=== PATIENT | male | born 1955 | race Caucasian/White ===

== ENCOUNTER 2017-06-11 12:32 | Inpatient (IN) ==
--- NOTE | 2017-06-11 12:48 | Emergency Department Note ---
Extremity Problem HPI - General Chief complaint: Extremity Problem,Nontraumatic Stated complaint: Left hip pain Time Seen by Provider: 06/11/17 12:44 Source: EMS Mode of arrival: EMS Limitations: no limitations - History of Present Illness HPI Narrative: Patient is a 62-year-old male that is brought to the emergency Department today by EMS after he fell at the [employer] while he was doing laundry. He reports that he was trying to put on his sock and fell backwards landing on his buttocks. He has past medical history of a brain tumor and since that time has been unsteady and walks with cane. He reports that when he fell he had left hip pain. He rates the pain 6 out of 10 on a 0-10 numerical pain score. He describes the pain as sharp. Denies any numbness or tingling. He denies hitting his head or any loss of consciousness. His mother is with him today and reports that since his brain tumor and surgery he had short-term memory loss and slight developmental delay. - Related Data Previous Rx's Medication Instructions Recorded levothyroxine 175 mcg tablet 175 mcg PO QDAY #90 tab 06/24/16 phenobarbital 64.8 mg tablet 194.4 mg PO QDAY #90 tab 02/11/17 bromocriptine 2.5 mg tablet See Dose Instructions PO .COMPLEX 04/13/17 #150 tab hydrocortisone 20 mg tablet 20 mg PO BID #60 tab 04/13/17 lamotrigine 200 mg tablet 600 mg PO BID #180 tab 04/13/17 ranitidine 150 mg capsule 150 mg PO QHS #90 cap 05/14/17 carbamazepine ER 200 mg 600 mg PO Q12H #180 tab 05/22/17 tablet,extended release,12 hr Allergies Allergy/AdvReac Type Severity Reaction Status Date / Time No Known Drug Allergies Allergy Verified 06/11/17 12:33 Review of Systems Review of Systems: Except as noted in the HPI, a 12 - system Review of Systems was found to be negative. Specifically: Constitutional: No chronic fatigue, unexplained weight gain, or weight loss. Eyes: No visual impairment, no pain, watering, discharge, or itching. Respiratory: No wheezing, dyspnea on exertion, or chronic cough. CV: No chest pain, cyanosis, palpitations, dizziness, or fainting. Musculoskeletal: positive left hip pain. See HPI. Neurologic: No headache, weakness, numbness, dizziness, or seizures. Hematologic/lymphatic: No blood disorder. No swollen lymph nodes. Integumentary: No problem with rashes, eczema, changing of skin lesions. No nail abnormalities. Past Medical History - Past Medical History Medical history: Reports: other (brain tumor with surgical removal.) Psychiatric history: Reports: no psych history - Social History smoking status: Never smoker Alcohol use: Reports: None Physical Exam Limitations: no limitations General appearance: alert, in no apparent distress Head: atraumatic, normocephalic, normal inspection Eye: Present: normal appearance, PERRL, EOMI. Absent: nystagmus Neck: Present: normal inspection. Absent: tenderness Chest: Present: normal inspection, symmetric chest wall rise. Absent: tenderness Respiratory: Present: normal lung sounds bilaterally Cardiovascular: Present: regular rate, normal rhythm, +S1, +S2 Extremities: Present: normal inspection, normal capillary refill. Absent: pedal edema, pretibial edema Hip/Pelvis: Present: normal inspection, other (Tenderness with palpation over the lateral side of left hip. No swelling. No ecchymosis, abrasions, or lacerations. No deformities. No crepitus. No internal or external rotation or shortening of the left leg. Pedal pulse 2+. Sensation within normal limits. Patient has normal motion of the left lower leg at the knee and below.) Back: Present: normal inspection, full ROM. Absent: tenderness Neurological: Present: alert, oriented X3, CN II-XII intact Psychiatric: Present: normal affect, normal mood Skin: Present: warm, dry, intact, normal color Course Course Narrative: Ortho here to see patient at 1445, Allyn Lorenzo. Patient will be admitted to [facility] floor and then to surgery with Dr. Gary. - Consultations Consultation #1: consulted with Dr. Gary a [phone] to report the femoral fracture. Dr. Gary will see the patient in the emergency department. Time: 14:20 Vital Signs Temperature 98.5 F 06/11/17 12:33 Pulse Rate 58 L 06/11/17 12:33 Respiratory Rate 16 06/11/17 12:33 Blood Pressure 118/64 06/11/17 12:33 Pulse Oximetry (%) 97 06/11/17 12:33 Temperature 98.5 F 06/11/17 12:33 Pulse Rate 61 06/11/17 14:20 Respiratory Rate 16 06/11/17 12:33 Blood Pressure 113/65 06/11/17 14:20 Pulse Oximetry (%) 94 06/11/17 14:20 Extremity Problem, Nontraumati - MDM Narrative Medical decision making narrative: IV established upon arrival by EMS. Patient was given 2 mg of morphine IV and then later repeated with 4 mg morphine IV to help control his pain with 4 mg ondansetron for nausea related to nausea after morphine given. x-ray of the left hip shows a fracture in the femoral neck. Dr. Gary was consulted and patient will be admitted to [facility] for surgery. - Lab Data Lab results reviewed: Yes I reviewed the patient's lab results. Result diagrams: 06/11/17 13:20 06/11/17 13:20 Lab Results 06/11/17 06/11/17 Range/Units 13:20 13:20 WBC 11.2 H (4.5-11.0) K/mcL RBC 4.75 (4.50-5.90) M/mcL Hgb 15.4 (13.5-16.5) g/dL Hct 46.2 (41.0-55.0) % MCV 97.3 (80.0-100.0) fL MCH 32.4 (26.0-34.0) pg MCHC 33.3 (31.0-36.0) g/dL RDW 13.3 (11.5-14.5) % Plt Count 239 (140-440) K/mcL MPV 7.4 (7.4-10.4) fL Gran % 61.4 (38.0-78.0) % Lymph % (Auto) 29.5 (15.5-49.0) % [place] % (Auto) 6.6 (1.0-12.0) % Eos % (Auto) 2.0 (0.0-7.0) % Baso % (Auto) 0.5 (0.0-2.0) % Gran # 6.9 (1.8-8.0) K/mcL Lymph # (Auto) 3.3 (1.5-4.8) K/mcL [place] # (Auto) 0.7 (0.1-0.9) K/mcL Eos # (Auto) 0.2 (0.0-0.7) K/mcL Baso # (Auto) 0.1 (0.0-0.3) K/mcL Sodium 135 (133-145) mmol/L Potassium 4.0 (3.3-5.1) mmol/L Chloride 97 (96-108) mmol/L Carbon Dioxide 27 (22-30) mmol/L Anion Gap 11.0 (8-16) BUN 12 (8-23) mg/dl Creatinine 0.9 (0.7-1.2) mg/dl GFR Calculation 92 Glucose 102 (70-105) mg/dL Calcium 8.4 L (8.6-10.4) mg/dl Total Bilirubin 0.2 (0.0-1.0) mg/dL AST 15 (0-37) U/l ALT 16 (0-40) U/l Alkaline Phosphatase 75 (39-117) U/L Total Protein 6.9 (5.9-8.4) gm/dL Albumin 4.2 (3.2-5.2) gm/dL Globulin 2.7 (2.2-3.7) gm/dL Albumin/Globulin Ratio 1.6 (1.0-2.3) - Radiology Data Radiology results reviewed: Yes I reviewed the patient's radiology results. 1. Left hip x-ray final impression shows fractured left femoral neck. 2. One view chest x-ray is a normal chest x-ray. - EKG Data EKG attestation: Yes I reviewed and interpreted this EKG. EKG results narrative: EKG read by Dr. Russell and myself. EKG shows normal: sinus rhythm Rate: normal Interpretation: no acute changes Disposition Pt seen by PIPE LINE GAUGER/PA only: Yes Clinical Impression: Fracture of femoral neck, left Disposition: Xfer As Inpt ([facility]) Condition: Fair Referrals: Duong Hercules MD [Primary Care Provider] -
[2017-06-11] MEDS ORDERED: ONDANSETRON 4 MG/2 ML VIAL IV ONE ×2 (13:21→17:55)
[2017-06-11 13:47] LABS: Basophils # (Auto) 0.1 K/mcL (0.0-0.3); Basophils % (Auto) 0.5 % (0.0-2.0); Eosinophils # (Auto) 0.2 K/mcL (0.0-0.7); Granulocytes % (Auto) 61.4 % (38.0-78.0); Lymphocytes # (Auto) 3.3 K/mcL (1.5-4.8); Lymphocytes % (Auto) 29.5 % (15.5-49.0); Mean Cell Volume 97.3 fL (80.0-100.0); Mean Corpuscular HGB Conc 33.3 g/dL (31.0-36.0); Mean Corpuscular Hemoglobin 32.4 pg (26.0-34.0); Monocytes # (Auto) 0.7 K/mcL (0.1-0.9); Monocytes % (Auto) 6.6 % (1.0-12.0); Platelet Count 239 K/mcL (140-440); RBC 4.75 M/mcL (4.50-5.90); Red Cell Distribution Width 13.3 % (11.5-14.5)
--- NOTE | 2017-06-11 13:48 | XRay Report ---
HISTORY: Reason for Exam:Fall/ hip pain FINDINGS: There is an acute transverse fracture through the femoral neck. The shaft is retracted superiorly and the head is rotated. The joint space is mildly narrowed but there is no spur formation. No other fracture is present. IMPRESSION: Fractured left femoral neck Interpreted and Authenticated by: Edis Romero 06/11/17
--- NOTE | 2017-06-11 13:49 | XRay Report ---
HISTORY: Reason for Exam:pre op for hip fracture FINDINGS: The lungs are clear. The heart, mediastinum, sukhdev and pleura are normal. The bilateral bands of discoid atelectasis seen on 12/05/13 have resolved. IMPRESSION: Normal chest. Interpreted and Authenticated by: Edis Romero 06/11/17
[2017-06-11 14:08] LABS: ALT/SGPT 16 U/l (0-40); Albumin 4.2 gm/dL (3.2-5.2); Albumin/Globulin Ratio 1.6 (1.0-2.3); Alkaline Phosphatase 75 U/L (39-117); Blood Urea Nitrogen 12 mg/dl (8-23)
--- NOTE | 2017-06-11 14:23 | Emergency Department Note ---
ED Note Addendum Note Addendum: agree with pa on dx of hip fracture and Dr Estrada to be consulted. Patienbt lab are pending and pt examined by me
[2017-06-11 15:22] LABS: Appearance,Urine HAZY; Bacteria,Urine 0 /hpf (0); Bilirubin,Urine NEG (NEG); Color,Urine YELLOW; Glucose,Urine (UA) NEGATIVE (NEG); Leukocyte Esterase,Urine NEG /uL (NEG); Mucus,Urine FEW /hpf (0); Protein,Urine 30 mg/dL (NEG); Specific Gravity,Urine 1.021 (1.000-1.035); Urine Blood NEG mg/dL (<0.03); Urine Hyaline Cast 4 /lpf (0-2); Urine RBC 1 /hpf (0-1); Urine Squamous Epithelial Cell 0 /hpf (0-4); Urine WBC 2 /hpf (0-4); Urobilinogen,Urine NEG (NEG)
--- NOTE | 2017-06-11 15:34 | History and Physical Report ---
DATE OF ADMISSION: 06/11/2017 CHIEF COMPLAINT: Left hip pain. HISTORY OF PRESENT ILLNESS: This is a 62-year-old male who presented to the emergency department after sustaining a fall at the [employer]. He immediately experienced fairly significant left hip pain and was unable to bear weight on the left lower extremity. I was consulted by the emergency physician regarding his hip pain which is explained by a femoral neck fracture of the left proximal femur. REVIEW OF SYSTEMS: A 12-point review of systems was found to be negative except as noted above. PAST MEDICAL HISTORY: Includes a pituitary tumor, epilepsy, GERD, hyperlipidemia, hypothyroidism, hypopituitarism, hypercholesterolemia, seizures, and testicular hypofunction. PAST SURGICAL HISTORY: History of pituitary tumor removal. He does have a history of an open reduction and internal fixation of the right ankle. FAMILY HISTORY: Noncontributory. ALLERGIES: No known drug allergies. MEDICATIONS: 1. Bromocriptine 2.5 mg tablets. 2. Carbamazepine ER 200 mg. 3. Hydrocortisone 20 mg. 4. Motrin 200 mg. 5. Levothyroxine 175 mcg. 6. Phenobarbital 64.8 mg. 7. Ranitidine 150 mg. 8. Testosterone 100 mg/mL intramuscular. SOCIAL HISTORY: The patient denies any smoking, alcohol, or recreational drug use. PHYSICAL EXAMINATION: GENERAL: The patient is alert and oriented, does not appear to be in any significant distress. HEAD: Atraumatic, normocephalic. EYES: Pupils are equal, round, and reactive to light and accommodation. Normal appearance. NECK: Normal without tenderness. RESPIRATORY: Lungs are clear to auscultation bilaterally without any wheezes, rhonchi or rales. CARDIOVASCULAR: Heart is regular rate and rhythm without murmur. MUSCULOSKELETAL: The left lower extremity is shortened and externally rotated. On physical exam, there is fairly significant tenderness to palpation over the left hip anteriorly and laterally. Internal/external rotation of the hip is limited significantly due to tenderness. There is modest swelling over the left hip. The left lower extremity is neurovascularly intact. PSYCHIATRIC: Normal mood and normal affect. SKIN: No abrasions, lacerations or open wounds noted. IMAGING: Radiographs of the left hip reveal a displaced left femoral neck fracture. There are no other acute abnormalities or fractures noted. ASSESSMENT: Left transcervical femoral neck fracture, displaced. PLAN: Dr. Gary and myself were consulted regarding this left femoral neck fracture. Treatment options were discussed with the patient, and he would like to proceed with a left hip hemiarthroplasty. Risks, complications, and possible limitations were discussed with the patient. He would like to proceed with surgery. He will be admitted for pain management and maintained on DVT prophylaxis. Dr. Gary was consulted and agrees with this plan. RSUvaldo:jamal Job ID: [id number] Doc ID: [id number] Allyn Maharaj PA-C
[2017-06-11] MEDS ORDERED: MIDAZOLAM 2 MG/2 ML VIAL IV ONE (17:55)
[2017-06-11] MEDS ORDERED: TRANEXAMIC ACID 1,000 MG/10 ML VIAL IV ONE (17:55)
[2017-06-11] MEDS ORDERED: PROPOFOL 200 MG/20 ML VIAL IV ONE (17:55)
[2017-06-11] MEDS ORDERED: GLYCOPYRROLATE 0.2 MG/ML VIAL IV ONE (17:55)
[2017-06-11] MEDS ORDERED: fentaNYL 100 MCG/2 ML VIAL IV ONE (17:55)
[2017-06-11] MEDS ORDERED: LIDOCAINE HCL/PF 100 MG/5 ML SYRINGE IV ONE (17:55)
[2017-06-11] MEDS ORDERED: KETAMINE 100 MG/ML ML IV ONE (17:55)
[2017-06-11] MEDS ORDERED: MORPHINE IV ONE (17:55)
[2017-06-11] MEDS ORDERED: ROPIVACAINE HCL/PF 30 ML VIAL IJ ONE (17:55)
[2017-06-11] MEDS ORDERED: fentaNYL 100 MCG/2 ML VIAL IV PRN (18:47)
[2017-06-11] MEDS ORDERED: HYDROmorphone 2 MG/ML VIAL IV PRN (18:47)
[2017-06-11] MEDS ORDERED: PROMETHAZINE 25 MG/ML VIAL IV PRN (18:47)
[2017-06-11] MEDS ORDERED: MEPERIDINE 25 MG/ML SYRINGE IV PRN (18:47)
[2017-06-11] MEDS ORDERED: ACETAMINOPHEN 1,000 MG/100 ML BOTTLE IV ONE (18:47)
[2017-06-11] MEDS ORDERED: IPRATROPIUM/ALBUTEROL 3 ML AMPUL.NEB NEB PRN (18:47)
[2017-06-11] MEDS ORDERED: METHOCARBAMOL 1,000 MG/10 ML VIAL IV PRN (18:47)
[2017-06-11] MEDS ORDERED: LACTATED RINGERS 1,000 ML IV SCH (19:00)
[2017-06-11] MEDS ORDERED: MAGNESIUM HYDROXIDE 30 ML ORAL.SUSP PO PRN (19:07)
[2017-06-11] MEDS ORDERED: BENZOCAINE/MENTHOL 1 LOZENGE PO PRN (19:07)
[2017-06-11] MEDS ORDERED: FLEETS ADULT ENEMA PR PRN (19:07)
[2017-06-11] MEDS ORDERED: BISACODYL 10 MG SUPP.RECT PR PRN (19:07)
--- NOTE | 2017-06-11 19:18 | Brief Operative Note ---
Date of procedure: 06/11/17 Pre-op diagnosis: hip fracture Post-op diagnosis: same Procedure: toni Grafts/Implants: Yes Anesthesia: GETA Findings: stable hip Surgeon: Tomer Gary [place] Supervisor: Allyn Maharaj Estimated blood loss (cc): 150 Specimens Removed/Pathology: none sent Condition: stable Disposition: PACU
[2017-06-11] MEDS: 0.9 % SODIUM CHLORIDE 1,000 ML IV SCH (20:15)
[2017-06-11] MEDS ORDERED: RANITIDINE 150 MG PO SCH (21:00)
[2017-06-11] MEDS ORDERED: PHENobarbital 30 MG TABLET PO SCH (21:00)
[2017-06-11] MEDS ORDERED: CARBAMAZEPINE 300 MG PO SCH (21:00)
[2017-06-11] MEDS ORDERED: PHENobarbital 30 MG TABLET ONE (23:52)
[2017-06-12] MEDS: HYDROCORTISONE 10 MG TABLET PO SCH ×3 (00:02→22:00)
[2017-06-12] MEDS: lamoTRIgine 100 MG TABLET PO SCH ×3 (00:02→21:58)
[2017-06-12] MEDS: 0.9 % SODIUM CHLORIDE 1,000 ML IV SCH ×4 (02:06→22:02)
[2017-06-12] MEDS: oxyCODONE HCL 5 MG TABLET PO PRN ×3 (02:39→08:05)
[2017-06-12] MEDS: LEVOTHYROXINE 25 MCG TABLET PO SCH (07:20)
--- NOTE | 2017-06-12 07:54 | XRay Report ---
HISTORY: Reason for Exam:post surgery FINDINGS: The left femoral head and neck have been removed and replaced with a total hip prosthesis. The apex of the prosthetic acetabular cup is oriented vertically. No new fracture has developed.. IMPRESSION: Left total hip prosthesis Interpreted and Authenticated by: Edis Romero 06/12/17
[2017-06-12] MEDS ORDERED: HYDROCORTISONE 10 MG TABLET PO SCH (08:00)
--- NOTE | 2017-06-12 08:26 | Orthopedic Progress Note ---
Subjective Patient information: Note initiated : 06/12/17 at 8:21 am Service Date, if different from initiated Date: [] Patient: Rio Chambers 62 y/o M admitted on 06/11/17 for Lt Hip Pain. Chief Complaint: [S/P left hip hemiarthroplasty] Patient is doing well though he does complain of left post-surgical hip pain. He denies any chest pain, SOA, or calf tenderness. Objective Vital signs: Vital Signs Temp Pulse Pulse Pulse Resp BP BP 06/12/17 08:00 86 06/12/17 07:43 100.8 F H 16 124/72 06/12/17 04:00 98.9 F 78 16 131/74 06/12/17 00:00 98.6 F 75 16 106/68 06/11/17 22:38 68 109/64 06/11/17 22:31 75 16 06/11/17 22:22 62 99/64 06/11/17 21:52 69 105/67 06/11/17 21:22 65 105/69 06/11/17 21:07 65 112/72 06/11/17 20:52 68 113/76 06/11/17 20:37 69 111/75 06/11/17 20:22 98.6 F 68 16 102/69 06/11/17 20:08 98.7 F 16 125/67 06/11/17 19:55 99.0 F H 16 127/69 06/11/17 19:39 98.3 F 17 127/77 06/11/17 19:35 17 114/74 06/11/17 19:30 18 119/67 06/11/17 19:25 98.3 F 14 136/79 06/11/17 16:02 98.5 F 65 16 112/63 06/11/17 16:00 98.3 F 89 16 96/53 06/11/17 15:31 65 112/63 06/11/17 15:17 65 112/63 06/11/17 15:02 101/56 06/11/17 14:54 58 L 108/61 06/11/17 14:47 59 L 108/61 06/11/17 14:32 59 L 104/68 06/11/17 14:20 61 113/65 06/11/17 14:17 59 L 113/65 06/11/17 14:02 59 L 118/68 06/11/17 13:56 59 L 118/67 06/11/17 13:47 58 L 118/67 06/11/17 13:32 61 116/69 06/11/17 13:30 61 129/70 06/11/17 12:33 98.5 F 58 L 16 118/64 Pulse Ox 06/12/17 08:00 06/12/17 07:43 91 06/12/17 04:00 91 06/12/17 00:00 96 06/11/17 22:38 95 06/11/17 22:31 93 06/11/17 22:22 95 06/11/17 21:52 06/11/17 21:22 92 06/11/17 21:07 95 06/11/17 20:52 95 06/11/17 20:37 97 06/11/17 20:22 91 06/11/17 20:08 93 06/11/17 19:55 97 06/11/17 19:39 98 06/11/17 19:35 98 06/11/17 19:30 96 06/11/17 19:25 97 06/11/17 16:02 93 06/11/17 16:00 91 06/11/17 15:31 93 06/11/17 15:17 92 06/11/17 15:02 06/11/17 14:54 95 06/11/17 14:47 95 06/11/17 14:32 94 06/11/17 14:20 94 06/11/17 14:17 94 06/11/17 14:02 93 06/11/17 13:56 93 06/11/17 13:47 94 06/11/17 13:32 90 06/11/17 13:30 89 L 06/11/17 12:33 97 Intake and Output 06/11/17 06/12/17 06/12/17 21:59 05:59 13:59 Intake Total 2650 / 2650 500 / 500 1000 / 1000 Output Total 700 / 700 525 / 525 Balance 1950 / 1950 -25 / -25 1000 / 1000 Intake: IV 100 / 100 1000 / 1000 Sodium Chloride 0.9% 1,000 ml @ 1000 / 1000 100 mls/hr IV .Q10H [facility] Rx#: [id number] Oral 500 / 500 IV - Manual Only 2550 / 2550 Output: Urine Catheter Amount 700 / 700 525 / 525 Other: Weight 252 lb Intake & Output: Intake & Output 06/11/17 06/12/17 06/12/17 21:59 05:59 13:59 Intake Total 2650 / 2650 500 / 500 1000 / 1000 Output Total 700 / 700 525 / 525 Balance 1950 / 1950 -25 / -25 1000 / 1000 Weight 252 lb Intake: IV 100 / 100 1000 / 1000 Sodium Chloride 0.9% 1,000 ml @ 1000 / 1000 100 mls/hr IV .Q10H [facility] Rx#: [id number] Oral 500 / 500 IV - Manual Only 2550 / 2550 Output: Urine Catheter Amount 700 / 700 525 / 525 Incision: Yes healing, Yes clean and dry Incision clean and dry: Yes Dressing: Yes clean, Yes dry, Yes intact Weight bearing status: full Neurological exam IM: Yes oriented X3, Yes motor sensory intact, Yes neurovascular intact Extremities exam IM: Yes normal inspection, Yes neurovascular intact Additional Comments: Negative Pallavi's bilaterally - Labs CBC & BMP: 06/12/17 04:40 06/11/17 13:20 Labs: Orthopedic Labs 06/12/17 04:40 PT 14.2 INR 1.1 06/12/17 06/11/17 04:40 13:20 Hgb 14.4 15.4 Hct 43.7 46.2 Assessment and Plan (1) Fracture of femoral neck, left Continue SCD's and start Aspirin 325 BID for DVT prophylaxis. Change pain regimen to [place] 10/325 q4-6 prn pain and Roxicodone 5mg q4-6 prn breakthrough pain if [place] is not effective. Ambulate with PT. Likely discharge to SNF in 2- 3 days. Status: Acute
[2017-06-12] MEDS ORDERED: HYDROcodone/APAP 10/325MG TABLET PO PRN (08:27)
[2017-06-12] MEDS ORDERED: CARBAMAZEPINE 300 MG PO SCH (09:00)
[2017-06-12] MEDS: ASPIRIN 325 MG ENTERIC COATED TABLET PO SCH ×2 (09:08→21:58)
[2017-06-12] MEDS: DOCUSATE SODIUM 100 MG CAPSULE PO SCH ×3 (09:09→22:00)
[2017-06-12] MEDS: carBAMazepine 200 MG TAB.SR.12H PO SCH ×2 (09:58→21:55)
--- NOTE | 2017-06-12 10:36 | Operative Note ---
DATE OF OPERATION: 06/11/2017 PREOPERATIVE DIAGNOSIS: Left displaced femoral neck fracture, transcervical. POSTOPERATIVE DIAGNOSIS: Left displaced femoral neck fracture, transcervical. OPERATION PROPOSED: Left hip hemiarthroplasty. OPERATION PERFORMED: Left hip hemiarthroplasty. OPERATING SURGEON: Tomer Gary M.D. SALES PRODUCT SPECIALIST: Allyn Maharaj PA-C. INDICATIONS: This is a gentleman who has had a left femoral neck fracture. It is markedly displaced and in need of operative treatment. OPERATION IN DETAIL: Informed consent was obtained. The patient was taken to the operating room where he was provided with appropriate anesthetic and prophylactic antibiotics. He was carefully positioned. His hip was prepped sterilely. A standard posterior approach to the hip was performed. I dissected through the iliotibial band. I cut and released short external rotators. The hip capsule was cut and T'd. I then refined the femoral neck cut. This napkin ring of bone was resected and I then engaged the femoral head with a corkscrew. This femoral head was removed and sized. I then sequentially broached and impacted a femoral stem from SigFig. A neutral neck was applied and a bipolar implant was reduced into place. The wounds were irrigated extensively with the Irrisept and pulsatile lavage. I closed the hip capsule with a Ti-Cron. The iliotibial band was repaired with interrupted Vicryl in a looped Maxon, 2-0 Vicryl inverted deep dermal, and darío in the skin. The procedure was tolerated well. No complications. Estimated blood loss is 100 mL. GDD:jamal Job ID: [id number] Doc ID: [id number] Toemr Gary MD
[2017-06-12] MEDS: BROMOCRIPTINE 5 MG PO SCH ×2 (13:18→18:23)
[2017-06-12] MEDS ORDERED: ACETAMINOPHEN 1,000 MG/100 ML BOTTLE IV ONE ×2 (15:00→23:00)
[2017-06-12] MEDS ORDERED: METHOCARBAMOL 750 MG TABLET PO PRN (15:00)
[2017-06-12] MEDS: BROMOCRIPTINE 2.5 MG PO SCH ×3 (16:14→21:57)
[2017-06-12] MEDS: PHENobarbital 30 MG TABLET PO SCH (21:58)
[2017-06-12] MEDS: FAMOTIDINE 20 MG TABLET PO SCH (21:59)
[2017-06-12] MEDS: SENNOSIDES 1 TABLET PO SCH ×2 (22:00)
[2017-06-13] MEDS: 0.9 % SODIUM CHLORIDE 1,000 ML IV SCH ×2 (08:46→19:28)
[2017-06-13] MEDS: ASPIRIN 325 MG ENTERIC COATED TABLET PO SCH ×2 (10:42→21:36)
[2017-06-13] MEDS: lamoTRIgine 100 MG TABLET PO SCH ×2 (10:42→21:33)
[2017-06-13] MEDS: carBAMazepine 200 MG TAB.SR.12H PO SCH ×2 (10:45→21:35)
[2017-06-13] MEDS: BROMOCRIPTINE 2.5 MG PO SCH ×3 (10:45→21:35)
[2017-06-13] MEDS: HYDROCORTISONE 10 MG TABLET PO SCH ×2 (10:47→21:34)
--- NOTE | 2017-06-13 11:17 | Orthopedic Progress Note ---
Orthopedics - Auxillary Note - Subjective Patient Information: Note initiated : 06/13/17 at 11:15 am Service Date, if different from initiated Date: [] Patient: Rio Chambers 62 y/o M admitted on 06/11/17 for Lt Hip Pain. Chief Complaint: mild pain bandages c/d/i nvi-distal Vital Signs Temp Pulse Pulse Resp BP BP BP 06/13/17 08:00 98.3 F 18 111/71 06/13/17 04:00 98.3 F 74 16 106/69 06/12/17 23:19 98.6 F 77 16 122/71 06/12/17 20:03 84 16 06/12/17 20:00 98.9 F 77 16 101/66 06/12/17 15:54 100.6 F H 18 136/70 06/12/17 15:03 99.5 F H 06/12/17 14:55 101.7 F H 06/12/17 12:00 100.7 F H 16 104/66 Pulse Ox 06/13/17 08:00 95 06/13/17 04:00 94 06/12/17 23:19 94 06/12/17 20:03 95 06/12/17 20:00 95 06/12/17 15:54 93 06/12/17 15:03 06/12/17 14:55 06/12/17 12:00 93 Intake and Output 06/12/17 06/13/17 06/13/17 21:59 05:59 13:59 Intake Total 1200 / 1200 275 / 275 Output Total 300 / 300 925 / 925 Balance 900 / 900 -650 / -650 Intake: IV 1100 / 1100 100 / 100 Sodium Chloride 0.9% 1,000 ml @ 1000 / 1000 100 mls/hr IV .Q10H [facility] Rx#: [id number] Oral 175 / 175 GI Tube Flush 100 / 100 Output: Urine Catheter Amount 300 / 300 925 / 925 Other: Weight 263 lb Laboratory Results - last 24 hr 06/13/17 06/13/17 04:40 04:40 Hgb 13.6 Hct 40.8 L PT 16.9 H INR 1.4 H s/p L hip toni-arthroplasty mobilize with PT continue with medical management per hospitalist. Tentative discharge 06/15
[2017-06-13] MEDS: LEVOTHYROXINE 25 MCG TABLET PO SCH (11:43)
[2017-06-13] MEDS: DOCUSATE SODIUM 100 MG CAPSULE PO SCH ×2 (11:46→21:34)
[2017-06-13] MEDS ORDERED: ACETAMINOPHEN 325 MG TABLET PO PRN (19:34)
[2017-06-13] MEDS ORDERED: ACETAMINOPHEN 325 MG TABLET PO ONE (19:38)
[2017-06-13] MEDS: PHENobarbital 30 MG TABLET PO SCH (21:33)
[2017-06-13] MEDS: FAMOTIDINE 20 MG TABLET PO SCH (21:35)
[2017-06-13] MEDS: SENNOSIDES 1 TABLET PO SCH (21:35)
[2017-06-14] MEDS: 0.9 % SODIUM CHLORIDE 1,000 ML IV SCH (03:59)
[2017-06-14] MEDS: LEVOTHYROXINE 25 MCG TABLET PO SCH (09:06)
[2017-06-14] MEDS: HYDROCORTISONE 10 MG TABLET PO SCH ×2 (09:56→21:47)
[2017-06-14] MEDS: DOCUSATE SODIUM 100 MG CAPSULE PO SCH ×2 (09:56→21:45)
[2017-06-14] MEDS: ASPIRIN 325 MG ENTERIC COATED TABLET PO SCH ×2 (09:56→21:45)
[2017-06-14] MEDS: POLYETHYLENE GLYCOL 3350 17 GM PACKET PO PRN (10:02)
[2017-06-14] MEDS: carBAMazepine 200 MG TAB.SR.12H PO SCH ×2 (10:22→21:48)
[2017-06-14] MEDS: BROMOCRIPTINE 2.5 MG PO SCH ×3 (10:23→21:47)
[2017-06-14] MEDS: lamoTRIgine 100 MG TABLET PO SCH ×2 (10:24→21:47)
--- NOTE | 2017-06-14 11:10 | Orthopedic Progress Note ---
Orthopedics - Auxillary Note - Subjective Patient Information: Note initiated : 06/14/17 at 11:09 am Service Date, if different from initiated Date: [] Patient: Rio Chambers 62 y/o M admitted on 06/11/17 for Lt Hip Pain. Chief Complaint: no c/o bandages mild bloody drainage nvi-distal Vital Signs Temp Pulse Resp BP BP BP Pulse Ox 06/14/17 07:27 97.7 F 18 108/73 95 06/14/17 06:01 98.8 F 06/14/17 03:49 100.1 F H 77 16 121/75 92 06/13/17 23:09 98.5 F 80 16 122/76 95 06/13/17 22:11 99.8 F H 06/13/17 20:30 100.6 F H 06/13/17 20:06 99.9 F H 06/13/17 20:00 101 F H 84 16 115/77 94 06/13/17 19:45 101 F H 06/13/17 16:00 99.4 F H 18 124/77 94 06/13/17 12:00 99.2 F H 18 110/72 93 Intake and Output 06/13/17 06/14/17 06/14/17 21:59 05:59 13:59 Intake Total 1730 / 1730 250 / 250 Output Total 1275 / 1275 975 / 975 Balance 455 / 455 -725 / -725 Intake: IV 1000 / 1000 Sodium Chloride 0.9% 1,000 ml @ 1000 / 1000 100 mls/hr IV .Q10H [facility] Rx#: [id number] Oral 180 / 180 250 / 250 GI Tube Flush 550 / 550 Output: Urine Catheter Amount 900 / 900 Void Amount 375 / 375 925 / 925 Emesis 50 / 50 Other: Meal Broth and applesauce Percent of Meal Consumed 100% Feeding Ability Total Assistance # Voids 1 1 Weight 261 lb 8 oz Laboratory Results - last 24 hr 06/14/17 06/14/17 04:10 06:14 Hgb 13.4 L Hct 40.9 L PT 15.4 H INR 1.2 H s/p L toni hip arthroplasty-stable discharge to SNF tomorrow
--- NOTE | 2017-06-14 11:13 | Discharge Summary ---
Providers - Providers Patient information: Note initiated : 06/14/17 at 11:10 am Service Date, if different from initiated Date: [] Patient: Rio Chambers 62 y/o M admitted on 06/11/17 for Lt Hip Pain. Chief Complaint: [] Discharge date: 06/15/17 Hospitalization Hospital course: Pt was admitted for a L hip femoral neck fracture. He underwent a L toni-hip arthroplasty preformed by Dr. Gary. He spent 3 nights on the floor post-op for IV pain meds, IV abx and PT. He was discharged to a SNF for further care due to his other co-morbidities. will f/u at [facility] in 2 weeks. Will do PT at SNF. ASA for DVT prophylaxis. Discharge diagnosis: L hip fx Exam - Exam Clean and dry: Yes Weight bearing status: as tolerated Ortho Discharge - [facility] - Patient Instructions Diet: Regular Diet Activity: activity as tolerated Total Hip Protocol: Follow activity instructions as provided by Physical Therapy. Dressing Care: May shower in 2 days - Follow Up Plan Follow Up Appointments: Duong Hercules MD [Primary Care Provider] - Disposition: Home, Self-Care Prognosis: Fair Rehab Potential: Good Overall status at discharge: patient is progressing back to baseline - Orders For Discharge Prescriptions: Aspirin [Ecotrin] 325 mg PO BID #60 tab.ec HYDROcodone/APAP 10/325MG [[place] 10-325Mg] 1 - 2 tab PO Q4-6HP PRN #75 tab PRN Reason: Pain Level 3-6 Pending Studies Resuscitation Status Full Code Diet Regular Diet Start ThuJune 12 0759 Acetaminophen (Tylenol) 650 mg PO Q6HP PRN PRN Reason: PAIN/FEVER > 101 Last Admin: 06/13/17 19:45 Dose: 650 mg Aspirin (Ecotrin) 325 mg PO BID [facility] Last Admin: 06/14/17 09:56 Dose: 325 mg Admin: 06/13/17 21:36 Dose: 325 mg Admin: 06/13/17 10:42 Dose: 325 mg Admin: 06/12/17 21:58 Dose: 325 mg Admin: 06/12/17 09:08 Dose: 325 mg Carbamazepine (Tegretol Xr) 600 mg PO BID [facility] Last Admin: 06/14/17 10:22 Dose: 600 mg Admin: 06/13/17 21:35 Dose: 600 mg Admin: 06/13/17 10:45 Dose: 600 mg Admin: 06/12/17 21:55 Dose: 600 mg Admin: 06/12/17 09:58 Dose: 600 mg Docusate Sodium (Colace) 100 mg PO BID [facility] Last Admin: 06/14/17 09:56 Dose: 100 mg Admin: 06/13/17 21:34 Dose: 100 mg Admin: 06/13/17 11:46 Dose: 100 mg Admin: 06/12/17 22:00 Dose: 100 mg Admin: 06/12/17 09:09 Dose: 100 mg Admin: 06/12/17 00:00 Dose: 100 mg Famotidine (Pepcid) 20 mg PO [facility] Last Admin: 06/13/17 21:35 Dose: 20 mg Admin: 06/12/17 21:59 Dose: 20 mg Hydrocortisone (Cortef) 20 mg PO BID [facility] Last Admin: 06/14/17 09:56 Dose: 20 mg Admin: 06/13/17 21:34 Dose: 20 mg Admin: 06/13/17 10:47 Dose: 20 mg Admin: 06/12/17 22:00 Dose: 20 mg Admin: 06/12/17 09:09 Dose: 20 mg Admin: 06/12/17 00:02 Dose: Not Given Sodium Chloride (Sodium Chloride 0.9%) 1,000 mls @ 100 mls/hr IV .Q10H [facility] Last Admin: 06/14/17 03:59 Dose: Admin: 06/13/17 19:28 Dose: Not Given Infusion: 06/13/17 19:28 Dose: 0 mls/hr Admin: 06/13/17 08:46 Dose: 100 mls/hr Infusion: 06/13/17 03:22 Dose: 100 mls/hr Admin: 06/12/17 22:02 Dose: Not Given Admin: 06/12/17 17:22 Dose: 100 mls/hr Infusion: 06/12/17 17:20 Dose: 0 mls/hr Admin: 06/12/17 06:34 Dose: 100 mls/hr Infusion: 06/12/17 06:33 Dose: 0 mls/hr Admin: 06/12/17 02:06 Dose: Not Given Admin: 06/11/17 20:15 Dose: 100 mls/hr Lamotrigine (Lamictal) 600 mg PO BID [facility] Last Admin: 06/14/17 10:24 Dose: 600 mg Admin: 06/13/17 21:33 Dose: 600 mg Admin: 06/13/17 10:42 Dose: 600 mg Admin: 06/12/17 21:58 Dose: 600 mg Admin: 06/12/17 09:09 Dose: 600 mg Admin: 06/12/17 00:02 Dose: 600 mg Levothyroxine Sodium (Synthroid) 175 mcg PO QAMAC [facility] Last Admin: 06/14/17 09:06 Dose: 175 mcg Admin: 06/13/17 11:43 Dose: 175 mcg Admin: 06/12/17 07:20 Dose: 175 mcg Morphine Sulfate (Morphine) 2 mg IV Q2HP PRN PRN Reason: PAIN LEVEL > 6 Last Admin: 06/12/17 05:59 Dose: 2 mg Oxycodone HCl (Roxicodone) 5 - 10 mg PO Q4HP PRN PRN Reason: Pain Last Admin: 06/12/17 08:05 Dose: 10 mg Admin: 06/12/17 04:12 Dose: 5 mg Admin: 06/12/17 02:39 Dose: 5 mg Bromocriptine 2.5 Mg 2 dose PO BID@0900,2200 [facility] Last Admin: 06/14/17 10:23 Dose: 2 dose Admin: 06/13/17 21:35 Dose: 2 dose Admin: 06/13/17 10:45 Dose: 2 dose Admin: 06/12/17 21:57 Dose: 2 dose Bromocriptine 2.5 Mg 1 dose PO DAILY@1600 [facility] Last Admin: 06/13/17 16:42 Dose: 1 dose Admin: 06/12/17 16:21 Dose: 1 dose Phenobarbital (Phenobarbital) 195 mg PO [facility] Last Admin: 06/13/17 21:33 Dose: 195 mg Admin: 06/12/17 21:58 Dose: 195 mg Polyethylene Glycol (Miralax) 17 gm PO DAILYP PRN PRN Reason: Constipation Last Admin: 06/14/17 10:02 Dose: 17 gm Senna (Senokot) 2 tab PO [facility] Last Admin: 06/13/17 21:35 Dose: 2 tab Admin: 06/12/17 22:00 Dose: 2 tab Admin: 06/12/17 00:00 Dose: 2 tab Shift Summary 06/14/17 04:33 Shift Summary by Mary Jo Medina&Gabriel4. Aquacel to left hip CDI. No c/o pain tonight. Patient has had N/V x2 tonight. This is usually triggered after he has been moved/repositioned, and once he is lying supine again he reports that the nausea subsides. Patient calls appropriately when needing to void. He is voiding per urinal while in bed because he is unable to stand or ambulate d/t weakness. He requires 2-3 assist to be moved to the edge of the bed or to be repositioned. He has had good urinary output tonight, PVR's have been about 250ml after each void. Max temp 101 at beginning of the night. Gave PO tylenol and encouraged use of IS and temp dropped to 98.5. Most recent temp 100.1, will continue to encourage use of IS. IV to LUZ is SL. AV boots removed again tonight per patient request to help him sleep. Seizure pads in place. Initialized on 06/14/17 04:33 - END OF NOTE
[2017-06-14] MEDS ORDERED: ONDANSETRON ODT 4 MG TABLET SL PRN (11:38)
[2017-06-14] MEDS ORDERED: TESTOSTERONE CYPIONATE 200 MG/ML IM SCH (12:06)
[2017-06-14] MEDS: 0.9 % SODIUM CHLORIDE 10 ML SYRINGE IV SCH ×2 (16:49→21:48)
[2017-06-14] MEDS: ONDANSETRON 4 MG/2 ML VIAL IV PRN (21:42)
[2017-06-14] MEDS: FAMOTIDINE 20 MG TABLET PO SCH (21:45)
[2017-06-14] MEDS: SENNOSIDES 1 TABLET PO SCH (21:45)
[2017-06-14] MEDS: PHENobarbital 30 MG TABLET PO SCH (21:46)
[2017-06-15] MEDS: 0.9 % SODIUM CHLORIDE 10 ML SYRINGE IV SCH (06:34)
[2017-06-15] MEDS ORDERED: LEVOTHYROXINE 25 MCG TABLET PO SCH (07:30)
[2017-06-15] MEDS ORDERED: LEVOTHYROXINE 150 MCG TABLET PO SCH (07:30)
[2017-06-15] MEDS: ONDANSETRON 4 MG/2 ML VIAL IV PRN (08:06)
[2017-06-15] MEDS: DOCUSATE SODIUM 100 MG CAPSULE PO SCH (09:42)
[2017-06-15] MEDS: HYDROCORTISONE 10 MG TABLET PO SCH (09:42)
[2017-06-15] MEDS: BROMOCRIPTINE 2.5 MG PO SCH (09:42)
[2017-06-15] MEDS: ASPIRIN 325 MG ENTERIC COATED TABLET PO SCH (09:42)
[2017-06-15] MEDS: POLYETHYLENE GLYCOL 3350 17 GM PACKET PO PRN (09:43)
[2017-06-15] MEDS: lamoTRIgine 100 MG TABLET PO SCH (10:12)
[2017-06-15] MEDS: carBAMazepine 200 MG TAB.SR.12H PO SCH (10:30)
--- NOTE | 2017-06-15 12:39 | Discharge Summary ---
Ortho Discharge - [facility] - Patient Instructions Diet: Regular Diet Activity: partial weight bearing Total Hip Protocol: Follow activity instructions as provided by Physical Therapy. Dressing Care: May shower in 2 days, Silvasorb gel & gauze - change daily Patient Education: Aspirin (By mouth), Hydrocodone (By mouth), Open Reduction and Internal Fixation of a Hip Fracture (DC) Additional Instructions: Diet: Regular Diet Activity: activity as tolerated Dressing Care: May shower in 2 days Total Hip Protocol: Follow activity instructions as provided by Physical Therapy. Discharge Instructions: Do the exercises at home that physical therapy gave you. Weight bearing as tolerated. You have the Aquacel Ag dressing, leave in place for 7 days then remove, which would be . If dressing becomes soiled (turns black), remove and use gauze 4x4 dressing and silvasorb ointment and change daily. Keep incision clean and dry. To avoid constipation while taking any narcotic pain medication, take an over the counter stool softener/laxative. Call your physician for fevers above 100.5 or pain not controlled by medication. Some medications were electronically transmitted to your pharmacy of choice. - Follow Up Plan Follow Up Appointments: Duong Hercules MD [Primary Care Provider] - Disposition: [facility] Prognosis: Fair Rehab Potential: Good - Orders For Discharge Prescriptions: Aspirin [Ecotrin] 325 mg PO BID #60 tab.ec HYDROcodone/APAP 10/325MG [[place] 10-325Mg] 1 - 2 tab PO Q4-6HP PRN #75 tab PRN Reason: Pain Level 3-6 Additional Discharge Orders: OT Discharge Order Location: Determined By Patient Physical Therapy at Discharge - [facility] Location: Determined By Patient Walker Location: Determined By Patient
== END 2017-06-15 13:37 | DRG 470 ==
LOC: ED 12:32 → MEDSUR 15:51
PROVIDERS: ADMIT Orthopaedic Surgery Orthopaedic Surgery of the Spine; ATTEND Orthopaedic Surgery Orthopaedic Surgery of the Spine
PROC: HEMIHIP (2017-06-11 17:54)

== ENCOUNTER 2022-02-03 12:58 | Inpatient (IN) ==
--- NOTE | 2022-02-03 13:51 | Emergency Department Note ---
Lower Extremity Injury HPI General Chief Complaint: Extremity Injury, Lower Stated Complaint: Rt hip Pain post fall Time Seen by Provider: 02/03/22 13:11 Source: patient and EMS Mode of arrival: EMS Limitations: no limitations History of Present Illness HPI Narrative: 66-year-old male with history of pituitary tumor status post resection, epilepsy, seizures, hypothyroidism, hyperlipidemia, GERD, and chronic steroid use at risk for adrenal crisis, presents to the ER after he sustained a fall this morning onto his right side and now has right hip pain. He states he lost his balance and denies hitting his head or having loss of consciousness. He is not on blood thinners. Related Data Home Medications Medication Instructions Recorded Confirmed pantoprazole 40 mg tablet,delayed 40 mg PO QAM 01/07/22 02/03/22 release safety needles 22 gauge x 1 1/2" 01/07/22 02/03/22 (BD SafetyGlide Needle) syringe with needle 3 mL 22 gauge 01/07/22 02/03/22 x 1" (Syringe) testosterone cypionate 200 mg/mL 200 mg IM Q2W 01/07/22 02/03/22 intramuscular oil Previous Rx's Medication Instructions Recorded bromocriptine 2.5 mg tablet See Dose Instructions PO .COMPLEX 06/12/17 #150 tabs carbamazepine 200 mg 600 mg PO Q12H #180 tabs 06/12/17 tablet,extended release,12 hr hydrocortisone 20 mg tablet 20 mg PO BID #60 tabs 06/12/17 lamotrigine 200 mg tablet 600 mg PO BID #180 tabs 06/12/17 levothyroxine 175 mcg tablet 175 mcg PO QDAY #30 tabs 06/12/17 phenobarbital 64.8 mg tablet 194.4 mg PO HS #90 tabs 12/17/17 Allergies Allergy/AdvReac Type Severity Reaction Status Date / Time No Known Drug Allergies Allergy Verified 02/03/22 13:02 Review of Systems ROS ROS Narrative: Narrative: All systems ED: reviewed and negative except as stated. PFSH Narrative Patient History Narrative: Narrative: Medical/Surgical/Family History All Active Problems (Updated 02/03/22 @ 14:10 by Stefany Leonardo PA-C) Fracture of hip, right, closed (Acute) Snoring (Chronic) Hypersomnia (Chronic) Daytime somnolence (Chronic) Right tibial fracture (Acute) Fracture of femoral neck, left (Acute) Fracture of tibia and fibula (Acute) History of brain surgery (Chronic) Testicular hypofunction (Chronic) Seizures (Chronic) Panhypopituitarism (Chronic) Hypothyroidism (Chronic) Hyperlipidemia (Chronic) Gastroesophageal reflux (Chronic) Epilepsy (Chronic) Dysmetabolic syndrome X (Chronic) Medical History Daytime somnolence Dysmetabolic syndrome X Epilepsy with features of benign essential tremor. Fracture of ankle, closed 09/20/2013; RT Gastroesophageal reflux Hyperlipidemia Hypersomnia Hypothyroidism Panhypopituitarism Pure hypercholesterolemia Seizures Currently on multiple antiepileptics Snoring Testicular hypofunction Surgical History History of brain surgery 1976; Brain tumor surgery, pituitary History of colonoscopy (11/30/15) History of foot surgery Left; Fractured tibia History of open reduction and internal fixation (ORIF) procedure 09/20/2013. Right ankle; Done by Dr. Roberts History of pituitary tumor Pituitary tumor removal History of surgery (~2012) Left femur History of surgery on lower extremity (~2007) both legs Status post wrist surgery 2000; Right wrist fracture, surgery. Family History Father , age 64 Malignant neoplasm of lung Heart attack Mother Recurrent UTI TIA (transient ischemic attack) Brother Skin cancer Social History Smoking Status: Never smoker Alcohol Intake Frequency: does not drink Substance Use: does not use Exam Narrative Narrative: General: AOx3, NAD, nontoxic appearing. Pleasant and conversant. HEENT: PERRL, EOMI, normocephalic. Moist mucous membranes. Normal facies and normal dentition. Chest: Symmetric, no pain to palpation Respiratory: Lungs clear to auscultation bilaterally. No respiratory distress. Unlabored breathing. Heart: Regular rate and rhythm, no murmurs/clicks/rubs. Abdomen: Non-tender, Non distended, normal bowel tones. No organomegaly. Extremities: Warm and well perfused. Left lower extremity shortened and externally rotated. He has excellent distal pulse of 2+. There is trace pitting edema. No venous stasis. Neuro: No focal deficits. Cranial nerves II-XII grossly normal. Skin: Warm dry, no rashes or lesions, no cyanosis. Psych: Normal mood and affect Heme/Lymph: No abnormal bruising General Limitations: no limitations Course Course Course Narrative: 66-year-old male presents after ground-level fall with right hip pain and ambulatory dysfunction Reevaluation(s) Reevaluation #1: Obtain x-ray of the right hip and pelvis Establish IV and give IV pain medication, morphine 4 mg x 1 dose Reevaluation #2: Acute fracture of the right femoral neck noted on plain film. Vital Signs Vital signs: Vital Signs Pulse Rate 55 L 02/03/22 12:59 Respiratory Rate 18 02/03/22 12:59 Blood Pressure 115/71 02/03/22 12:59 Pulse Oximetry (%) 98 02/03/22 12:59 Oxygen Delivery Method 02/03/22 12:59 Pulse Rate 55 L 02/03/22 12:59 Respiratory Rate 18 02/03/22 12:59 Blood Pressure 115/71 02/03/22 12:59 Pulse Oximetry (%) 98 02/03/22 12:59 Oxygen Delivery Method 02/03/22 12:59 MDM MDM Narrative Medical decision making narrative: Right hip fracture History of epilepsy History of pituitary tumor Chronic steroid use Dr. Demarco has been notified and will admit the patient for surgery this evening. Patient will need to bring in his bromocriptine from home. Recommend stress dose steroids given long-term use of oral hydrocortisone. Transfer to inpatient. Lab Data Result diagrams: 02/03/22 14:07 02/03/22 14:07 Labs: Lab Results 02/03/22 Range/Units 14:07 WBC 8.3 (4.5-11.0) K/mcL RBC 4.25 L (4.63-6.08) M/mcL Hgb 13.8 (13.7-17.5) g/dL Hct 40.2 (40.1-51.0) % MCV 94.6 (80.0-100.0) fL MCH 32.5 (26.0-34.0) pg MCHC 34.3 (31.0-36.0) g/dL RDW 12.6 (11.5-14.5) % Plt Count 195 (140-440) K/mcL MPV 9.4 (8.8-12.5) fL Immature Gran % (Auto) 0.6 H (0.0-0.5) % Neut % (Auto) 48.9 (38.0-78.0) % Lymph % (Auto) 36.5 (15.5-49.0) % [place] % (Auto) 10.4 (1.0-12.0) % Eos % (Auto) 2.6 (0.0-7.0) % Baso % (Auto) 1.0 (0.0-2.0) % Lymph # (Auto) 3.04 (1.50-4.80) K/mcL [place] # (Auto) 0.87 (0.10-0.90) K/mcL Eos # (Auto) 0.22 (0.00-0.70) K/mcL Baso # (Auto) 0.08 (0.00-0.30) K/mcL Immature Gran # 0.05 (0.00-0.05) K/mcl Absolute Neutrophils 4.07 (1.80-8.00) K/mcL Discharge Plan Patient/Caregiver Discharge Instructions Pt seen by [facility]TER/PA only: Yes Clinical Impression: Fracture of hip, right, closed Patient Disposition: Xfer As Inpt ([facility]) Follow up with: Erna Lagos MD [Primary Care Provider] - Prescriptions: No Action bromocriptine 2.5 mg tablet See Dose Instructions PO .COMPLEX Qty: 150 12RF Dose Instruction: PO Take 2 tab in the morning and 1 at 4 in the evening and 2 tablets at 10 pm Rx Instructions: Take 2 tablets in the morning, 1 tablet at 4:00PM and 2 tablets at 10:00PM. carbamazepine 200 mg tablet extended release 12 hr 600 mg PO Q12H Qty: 180 12RF hydrocortisone 20 mg tablet 20 mg PO BID Qty: 60 12RF lamotrigine 200 mg tablet 600 mg PO BID Qty: 180 12RF levothyroxine 175 mcg tablet 175 mcg PO QDAY Qty: 30 12RF phenobarbital 64.8 mg tablet 194.4 mg PO HS Qty: 90 3RF testosterone cypionate 200 mg/mL oil 200 mg IM Q2W pantoprazole 40 mg tablet,delayed release (DR/EC) 40 mg PO QAM (DME) BD SafetyGlide Needle 22 gauge x 1 1/2" needle See Rx Instructions .Route Rx Instructions: As directed (DME) Syringe 3cc/22Gx1" 3 mL 22 gauge x 1" syringe See Rx Instructions .Route Rx Instructions: As directed
[2022-02-03] MEDS ORDERED: ONDANSETRON 4 MG/2 ML VIAL IV ONE (14:07)
[2022-02-03] MEDS ORDERED: morphine 4 MG/ML VIAL IV ONE (14:07)
--- NOTE | 2022-02-03 14:07 | XRay Report ---
HISTORY: Fell with right hip injury FINDINGS: There is an acute transverse fracture of the femoral neck. The head is rotated and there is proximal retraction of the shaft. There is varus angulation. The hip joint space is normal in width and there is no significant arthritis. The patient has a left hip prosthesis which is well-positioned. IMPRESSION: Acute fracture of the right femoral neck Interpreted and Authenticated by: Edis Romero 02/03/22
[2022-02-03 14:46] LABS: Basophils # (Auto) 0.08 K/mcL (0.00-0.30); Eosinophils # (Auto) 0.22 K/mcL (0.00-0.70); Eosinophils % (Auto) 2.6 % (0.0-7.0); Hematocrit 40.2 % (40.1-51.0); Hemoglobin 13.8 g/dL (13.7-17.5); Lymphocytes # (Auto) 3.04 K/mcL (1.50-4.80); Lymphocytes % (Auto) 36.5 % (15.5-49.0); Mean Cell Volume 94.6 fL (80.0-100.0); Mean Corpuscular HGB Conc 34.3 g/dL (31.0-36.0); Mean Platelet Volume 9.4 fL (8.8-12.5); Monocytes # (Auto) 0.87 K/mcL (0.10-0.90); Monocytes % (Auto) 10.4 % (1.0-12.0); Neutrophils % (Auto) 48.9 % (38.0-78.0); Platelet Count 195 K/mcL (140-440); RBC 4.25 M/mcL (4.63-6.08); Red Cell Distribution Width 12.6 % (11.5-14.5); WBC 8.3 K/mcL (4.5-11.0)
[2022-02-03] MEDS ORDERED: ONDANSETRON 4 MG/2 ML VIAL IV PRN ×4 (15:01→16:23)
[2022-02-03] MEDS ORDERED: oxyCODONE HCL 5 MG TABLET PO PRN (15:04)
[2022-02-03] MEDS ORDERED: HYDROmorphone 0.5 MG/0.5 ML SYRINGE IV PRN (15:04)
[2022-02-03] MEDS ORDERED: ALBUTEROL SULFATE 2.5 MG/3 ML NEBULIZER NEB PRN (15:04)
[2022-02-03] MEDS ORDERED: NITROGLYCERIN 0.4 MG TAB.SUBL SL PRN (15:04)
[2022-02-03] MEDS ORDERED: traZODone HCL 50 MG TABLET PO PRN (15:04)
[2022-02-03] MEDS ORDERED: ACETAMINOPHEN 325 MG TABLET PO PRN ×2 (15:04→15:19)
[2022-02-03] MEDS ORDERED: NALOXONE HCL 0.4 MG/ML VIAL IV PRN ×2 (15:04→16:23)
[2022-02-03] MEDS ORDERED: MAGNESIUM HYDROXIDE 30 ML ORAL.SUSP PO PRN ×2 (15:04→15:19)
[2022-02-03] MEDS ORDERED: PROCHLORPERAZINE 10 MG/2 ML VIAL IV PRN (15:04)
[2022-02-03 15:05] LABS: ALT/SGPT 15 U/L (<40); AST/SGOT 14 U/L (<40); Albumin 3.9 gm/dL (3.2-5.2); Albumin/Globulin Ratio 1.3 (1.0-2.3); Alkaline Phosphatase 93 U/L (39-117); Bilirubin,Total 0.3 mg/dL (0.1-1.0); Blood Urea Nitrogen 13 mg/dL (8-23); Calcium 8.7 mg/dL (8.6-10.4); Carbon Dioxide 25 mmol/L (22-30); Chloride 97 mmol/L (96-108); Globulin 2.9 gm/dL (2.2-3.7); Glomerular Filtration Rate 89; Glucose 101 mg/dL (70-105)
--- NOTE | 2022-02-03 15:07 | XRay Report ---
HISTORY: Preop for repair fractured right hip FINDINGS: Heart is mildly enlarged but magnified by portable supine technique. There is no congestive heart failure. The lungs are clear. Aorta is tortuous. Comparison with the prior x-ray done on 05/03/20 shows the heart has increased in size. IMPRESSION: Cardiomegaly Interpreted and Authenticated by: Edis Romero 02/03/22
[2022-02-03] MEDS ORDERED: LORazepam 2 MG/ML VIAL IV PRN (15:09)
--- NOTE | 2022-02-03 15:11 | Internal Med History&Physical ---
HPI History of Present Illness Patient information: Note initiated : 02/03/22 at 3:10 pm Service Date, if different from initiated Date: [] Patient: Rio Chambers a 66 y/o M admitted on for Rt hip Pain post fall. Chief Complaint: [] Chief complaint: Right hip pain History of present illness: Mr. Chambers is a 66 year old M With history of panhypopituitarism, history of seizure disorder presents to the emergency room today for evaluation of right hip pain.The patient reports he had a mechanical fall, lost his balance and fell, denies any dizziness, denies any prodromal symptoms prior to the fall. After the fall the patient developed pain on his right side of the hip, and therefore he presented to the ED for further evaluation, is difficult for the patient to ambulate. On arrival to the emergency room patient was hemodynamically stable, not requiring oxygen supplementation, he did not complain about any head injury. The patient at the time of my evaluation was a bit groggy after administration of morphine. Lab work shows a normal hemogram, chemistries are pending, patient had an x-ray which shows a right femoral neck fracture, Patient will be taken for the OR today by Ortho, patient will be admitted to the hospital to the medicine service for further management. Constitutional Constitutional: Absent fever(s) EENT Eyes: Absent change in vision Cardiovascular Cardiovascular: Absent chest pain at rest, chest pain with activity, dyspnea on exertion or paroxysmal nocturnal dyspnea Respiratory Respiratory: Absent cough, dyspnea on exertion or wheezing Gastrointestinal Gastrointestinal: Absent hematochezia, nausea or vomiting Genitourinary Genitourinary: dysuria (denies dysuria) Musculoskeletal Musculoskeletal: Present limited range of motion Integumentary Integumentary: Absent swelling, unusual bruising or jaundice Neurological Neurological: Absent focal weakness, lack of coordination, tingling or weakness Endocrine Endocrine: Absent polydipsia or polyuria Hematologic/Lymphatic Hematologic/Lymphatic: Absent easy bleeding or easy bruising PFSH PFSH All Active Problems (Updated 02/03/22 @ 15:22 by Theodora Altamirano MD) Pre-op evaluation (Acute) Fracture of hip, right, closed (Acute) Snoring (Chronic) Hypersomnia (Chronic) Daytime somnolence (Chronic) Right tibial fracture (Acute) Fracture of femoral neck, left (Acute) Fracture of tibia and fibula (Acute) History of brain surgery (Chronic) Testicular hypofunction (Chronic) Seizures (Chronic) Panhypopituitarism (Chronic) Hypothyroidism (Chronic) Hyperlipidemia (Chronic) Gastroesophageal reflux (Chronic) Epilepsy (Chronic) Dysmetabolic syndrome X (Chronic) Medical History (Updated 02/03/22 @ 15:22 by Theodora Altamirano MD) Daytime somnolence Dysmetabolic syndrome X Epilepsy with features of benign essential tremor. Fracture of ankle, closed 09/20/2013; RT Fracture of hip, right, closed Gastroesophageal reflux Hyperlipidemia Hypersomnia Hypothyroidism Panhypopituitarism Pure hypercholesterolemia Seizures Currently on multiple antiepileptics Snoring Testicular hypofunction Surgical History History of brain surgery 1976; Brain tumor surgery, pituitary History of colonoscopy (11/30/15) History of foot surgery Left; Fractured tibia History of open reduction and internal fixation (ORIF) procedure 09/20/2013. Right ankle; Done by Dr. Roberts History of pituitary tumor Pituitary tumor removal History of surgery (~2012) Left femur History of surgery on lower extremity (~2007) both legs Status post wrist surgery 2000; Right wrist fracture, surgery. Family History Father , age 64 Malignant neoplasm of lung Heart attack Mother Recurrent UTI TIA (transient ischemic attack) Brother Skin cancer Social History marital status: single occupational status: disabled smoking status: Never smoker alcohol intake frequency: does not drink substance use type: does not use MEDS/ALLERGIES Home Medications and Allergies Home Medications Medication Instructions Recorded Confirmed Type bromocriptine 2.5 mg tablet See Dose Instructions PO .COMPLEX 06/12/17 02/03/22 Rx #150 tabs carbamazepine 200 mg 600 mg PO Q12H #180 tabs 06/12/17 02/03/22 Rx tablet,extended release,12 hr hydrocortisone 20 mg tablet 20 mg PO BID #60 tabs 06/12/17 02/03/22 Rx lamotrigine 200 mg tablet 600 mg PO BID #180 tabs 06/12/17 02/03/22 Rx levothyroxine 175 mcg tablet 175 mcg PO QDAY #30 tabs 06/12/17 02/03/22 Rx phenobarbital 64.8 mg tablet 194.4 mg PO HS #90 tabs 12/17/17 02/03/22 Rx pantoprazole 40 mg tablet,delayed 40 mg PO QAM 01/07/22 02/03/22 History release safety needles 22 gauge x 1 1/2" 01/07/22 02/03/22 History (BD SafetyGlide Needle) syringe with needle 3 mL 22 gauge 01/07/22 02/03/22 History x 1" (Syringe) testosterone cypionate 200 mg/mL 200 mg IM Q2W 01/07/22 02/03/22 History intramuscular oil Allergies Allergy/AdvReac Type Severity Reaction Status Date / Time No Known Drug Allergies Allergy Verified 02/03/22 13:02 EXAM Constitutional Vitals: Pulse Resp BP Pulse Ox O2 Del Method 51 L 18 105/64 95 02/03/22 14:57 02/03/22 12:59 02/03/22 14:46 02/03/22 14:57 02/03/22 12:59 General appearance: obese Head Head exam: Present atraumatic, normal inspection and normocephalic Eye Eye exam: Present EOMI Neck Neck exam: Present full ROM and normal inspection Respiratory Respiratory exam: Present normal respiratory exam; Absent accessory muscle use, rales, respiratory distress, stridor or wheezes Cardiovascular Cardiovascular exam: Present normal rate and rhythm, +S1 and +S2; Absent rubs, +S3, +S4 or systolic murmur GI/Abdominal GI/Abdominal exam: Present normal bowel sounds and soft; Absent rebound or tenderness Rectal Rectal exam: Present deferred Expanded Lower Extremity Exam Hip exam: Present external rotation (right) Neurological Exam Neurological exam: Present CN II-XII intact and oriented X3; Absent motor sensory deficit Psychiatric Psychiatric exam: Present normal affect and normal mood Skin Skin exam: Present normal color; Absent cyanosis, diaphoretic, erythema or urticaria DATA Data Completed and Pending Labs: Labs from last 24 hours 02/03/22 02/03/22 02/03/22 14:07 14:07 14:07 WBC 8.3 RBC 4.25 L Hgb 13.8 Hct 40.2 MCV 94.6 MCH 32.5 MCHC 34.3 RDW 12.6 Plt Count 195 MPV 9.4 Immature Gran % (Auto) 0.6 H Neut % (Auto) 48.9 Lymph % (Auto) 36.5 [place] % (Auto) 10.4 Eos % (Auto) 2.6 Baso % (Auto) 1.0 Lymph # (Auto) 3.04 [place] # (Auto) 0.87 Eos # (Auto) 0.22 Baso # (Auto) 0.08 Immature Gran # 0.05 Absolute Neutrophils 4.07 PT Pending INR Pending Sodium 133 Potassium 3.6 Chloride 97 Carbon Dioxide 25 Anion Gap 11.0 BUN 13 Creatinine 0.9 GFR Calculation 89 Glucose 101 Calcium 8.7 Total Bilirubin 0.3 AST 14 ALT 15 Alkaline Phosphatase 93 Total Protein 6.8 Albumin 3.9 Globulin 2.9 Albumin/Globulin Ratio 1.3 Imaging and Cardiology Chest x-ray: Status: image reviewed by me and pending Additional comments: No focal infiltrate Additional Comments Additional comments: Pelvis x ray A/P Assessment and plan (1) Fracture of hip, right, closed: Assessment and plan: Traumatic fracture Plan: Or today by Ortho Lovenox for dvt prophylaxis OT/PT eval at baseline uses a walker? will likely need snf discharge Status: Acute (2) Seizures: Assessment and plan: On multiple meds, Plan: Seizure precautions Resume anti seizure meds IV ativan prn for seizures Status: Chronic Comment: Currently on multiple antiepileptics (3) Panhypopituitarism: Assessment and plan: s/p pitutary resection? Plan: IV hydrocortisone for now, to prevent Adrenal crisis wean down hydrocortisone to home dose rapidly post op Status: Chronic (4) Hyperlipidemia: Plan: NOt on any meds per home med list Status: Chronic (5) Hypothyroidism: Plan: Resume levothyroxine Status: Chronic Qualifiers: Hypothyroidism type: acquired Qualified Code(s): E03.9 - Hypothyroidism, unspecified (6) Gastroesophageal reflux: Plan: continue PPI Status: Chronic (7) Hypersomnia: Plan: seen by pulmonary, suspect ETHEL Status: Chronic (8) Pre-op evaluation: Assessment and plan: RCRI is 0 No h/o Myocardial infarction, no history of heart failure no history of stroke, no history of renal disease or diabetes. Patient denies any chest pain or dyspnea on exertion. Does have poor functional status at baseline. Plan: Patient can proceed to surgery with low to moderate risk, no modifiable risk factors present. Status: Acute Sepsis Sepsis Identified: No Time Spent With Patient Time: Total time spent is greater than 50% in coordination of care (as documented) at patient's floor/unit and/or counseling patient:
[2022-02-03] MEDS ORDERED: BISACODYL 10 MG SUPP.RECT PR PRN (15:19)
[2022-02-03] MEDS ORDERED: TRANEXAMIC ACID 1,000 MG/10 ML VIAL IV ONE (15:19)
[2022-02-03] MEDS ORDERED: HYDROcodone/APAP 10/325MG TABLET PO PRN (15:19)
[2022-02-03] MEDS ORDERED: FLEETS ADULT ENEMA PR PRN (15:19)
[2022-02-03] MEDS ORDERED: HYDROmorphone 1 MG/ML SYRINGE IV PRN (15:19)
[2022-02-03] MEDS ORDERED: POLYETHYLENE GLYCOL 3350 17 GM PACKET PO PRN (15:19)
--- NOTE | 2022-02-03 15:19 | Brief Operative Note ---
Brief Operative Note Date of procedure: 02/03/22 Pre-op diagnosis: Right femur fx neck Post-op diagnosis: same Procedure: Right hip femoral neck fx hemiarthroplasty Grafts/Implants: Yes Anesthesia: GETA Findings: none Complications: none Surgeon: Joce Feliciano Director Of Physical Education: Otto Gamboa Estimated blood loss (cc): 40 Specimens Removed/Pathology: none sent Condition: stable Disposition: PACU
[2022-02-03] MEDS ORDERED: KETAMINE 50 MG/ML Syringe (ANEST) IV ONE (15:40)
[2022-02-03] MEDS ORDERED: HYDROmorphone 1 MG/ML SYRINGE ONE (15:40)
[2022-02-03] MEDS ORDERED: MAGNESIUM SULFATE 2 GM/50 ML BAG IV ONE (15:40)
[2022-02-03] MEDS ORDERED: TRANEXAMIC ACID 1,000 MG/10 ML VIAL ONE (15:40)
[2022-02-03] MEDS ORDERED: fentaNYL 100 MCG/2 ML VIAL IV ONE (15:40)
[2022-02-03] MEDS ORDERED: PROPOFOL 200 MG/20 ML VIAL IV ONE (15:40)
[2022-02-03] MEDS ORDERED: ceFAZolin 2 GM in DEXTROSE 5% IN WATER 50 ML IV SCH (15:40)
[2022-02-03] MEDS ORDERED: LIDOCAINE HCL/PF 100 MG/5 ML SYRINGE IV ONE (15:40)
[2022-02-03] MEDS ORDERED: ONDANSETRON 4 MG/2 ML VIAL ONE (15:40)
[2022-02-03] MEDS ORDERED: ePHEDrine 50 MG/5 ML SYRINGE (ANEST) IV ONE (15:40)
[2022-02-03] MEDS ORDERED: DEXAMETHASONE 10 MG/ML VIAL ONE (15:40)
--- NOTE | 2022-02-03 15:45 | Consultation ---
DATE OF CONSULTATION: 02/03/2022 HISTORY OF PRESENT ILLNESS: Rio is a very pleasant 66-year-old who had a fall within the care center, had immediate pain, swelling, deformity of the right hip. He has had a prior left hemiarthroplasty. He is on chronic steroids. He is 6 feet, 258 pounds without loss of consciousness, was brought to the emergency room and diagnosed with a femoral neck displaced fracture. PAST MEDICAL HISTORY: He does have a history of hypersomnia. He has had right femoral neck fracture today. He has had right tibia fracture. He has had a left femoral neck fracture. He has had seizures in the past. He has panhypopituitarism, hypothyroidism, gastroesophageal reflux, and sleep apnea. ALLERGIES: He notes no allergies. PHYSICAL EXAMINATION: GENERAL: Very pleasant elderly male, 66 years of age. Well kept, gives an excellent history, in no acute distress. CARDIOVASCULAR: He does have a systolic ejection murmur 2-3/6. No arrhythmia. LUNGS: No rhonchi or rales with his lungs. No labored breathing. EXTREMITIES: Shows right extremity externally rotated and shortened with good capillary refill. He moves his toes, but unable to do more than that. He is lying in bed. He cannot get up and walk obviously. His x-rays of right hip demonstrate right femoral neck fracture, displaced with severe osteopenia and prior left hip hemiarthroplasty. The treatment will be right hemiarthroplasty on the right side. Understanding the risks and benefits, he agrees to proceed. His chest x-ray appears to be fairly normal with an enlarged heart. CBC, other labs, and EKG waves are pending. [email or web address] Job ID: [id number] Doc ID: [id number] Joce Feliciano MD
[2022-02-03] MEDS ORDERED: diphenhydrAMINE 50 MG/ML VIAL IV PRN (16:23)
[2022-02-03] MEDS ORDERED: fentaNYL 100 MCG/2 ML VIAL IV PRN (16:23)
[2022-02-03] MEDS ORDERED: LACTATED RINGERS 250 ML IV PRN (16:23)
[2022-02-03] MEDS ORDERED: MEPERIDINE 25 MG/ML VIAL IV PRN (16:23)
[2022-02-03] MEDS ORDERED: ACETAMINOPHEN 1,000 MG/100 ML BAG IV ONE ×2 (16:23→16:38)
[2022-02-03] MEDS ORDERED: METHOCARBAMOL 1,000 MG/10 ML VIAL IV PRN (16:23)
[2022-02-03] MEDS ORDERED: IPRATROPIUM/ALBUTEROL 3 ML AMPUL.NEB NEB PRN (16:23)
[2022-02-03] MEDS ORDERED: PROMETHAZINE 25 MG/ML VIAL IV PRN (16:23)
[2022-02-03] MEDS ORDERED: LACTATED RINGERS 1,000 ML IV SCH (16:30)
--- NOTE | 2022-02-03 16:42 | Discharge Plan ---
Discharge Instructions - [facility] Patient Instructions Total Hip Protocol: Follow activity instructions as provided by Physical Therapy. Discharge Plan Patient/Caregiver Discharge Instructions Activity: ambulate only with your walker and as per physical therapy Diet: Regular Diet Prescriptions: New docusate sodium 100 mg capsule 100 mg PO BID Qty: 60 0RF hydrocodone-acetaminophen 10-325 mg tablet 1 - 2 tab PO Q4H PRN (Reason: pain) Qty: 75 0RF aspirin [Ecotrin Low Strength] 81 mg tablet,delayed release (DR/EC) 81 mg PO BID Qty: 60 0RF No Action bromocriptine 2.5 mg tablet See Dose Instructions PO .COMPLEX Qty: 150 12RF Dose Instruction: PO Take 2 tab in the morning and 1 at 4 in the evening and 2 tablets at 10 pm Rx Instructions: Take 2 tablets in the morning, 1 tablet at 4:00PM and 2 tablets at 10:00PM. carbamazepine 200 mg tablet extended release 12 hr 600 mg PO Q12H Qty: 180 12RF hydrocortisone 20 mg tablet 20 mg PO BID Qty: 60 12RF lamotrigine 200 mg tablet 600 mg PO BID Qty: 180 12RF levothyroxine 175 mcg tablet 175 mcg PO QDAY Qty: 30 12RF phenobarbital 64.8 mg tablet 194.4 mg PO HS Qty: 90 3RF testosterone cypionate 200 mg/mL oil 200 mg IM Q2W pantoprazole 40 mg tablet,delayed release (DR/EC) 40 mg PO QAM (DME) BD SafetyGlide Needle 22 gauge x 1 1/2" needle See Rx Instructions .Route Rx Instructions: As directed (DME) Syringe 3cc/22Gx1" 3 mL 22 gauge x 1" syringe See Rx Instructions .Route Rx Instructions: As directed Other Ambulatory Orders: Physical Therapy DC - [facility] (Routine) Location: None Selected Ordered By: Otto Gamboa Toilet Riser Discharge Order (ONCE) Location: None Selected Ordered By: Otto Gamboa Walker (ONCE) Location: None Selected Ordered By: Otto Gamboa Follow Up Plan Follow up with: Erna Lagos MD [Primary Care Provider] - Otto Gamboa PA-C [Physician Director Of Quality Improvement] - Patient Disposition: Xfer SNF Prognosis: Fair Rehab Potential: Fair I certify that the patient requires SNF services: Yes Overall status at discharge: patient is not back to baseline Discharge Orders: Discharge Order (Routine); Ordered 02/04/22 Ordered By: Otto Gamboa
[2022-02-03] MEDS: 0.9 % SODIUM CHLORIDE 1,000 ML IV SCH (18:07)
[2022-02-03] MEDS: 0.45 % SODIUM CHLORIDE 1,000 ML IV SCH ×2 (18:51→23:40)
[2022-02-03] MEDS: BROMOCRIPTINE 2.5 MG PO SCH ×2 (18:53→21:22)
[2022-02-03] MEDS: HYDROCORTISONE SOD SUCC 100 MG VIAL IV SCH ×2 (18:54→21:17)
--- NOTE | 2022-02-03 19:09 | XRay Report ---
HISTORY: Postop repair fractured right femoral neck FINDINGS: There is a well-positioned right total hip prosthesis. No new fracture has developed. There are no abnormal soft tissue calcifications. Patient has an indwelling left hip prosthesis. The prosthetic acetabular cup is oriented transversely which may limit the range of motion. IMPRESSION: Well-positioned newly inserted right hip prosthesis Interpreted and Authenticated by: Edis Romero 02/03/22
[2022-02-03] MEDS ORDERED: DOCUSATE SODIUM 100 MG CAPSULE PO SCH (21:00)
[2022-02-03] MEDS ORDERED: SENNOSIDES 1 TABLET PO SCH (21:00)
[2022-02-03] MEDS ORDERED: FAMOTIDINE 20 MG TABLET PO SCH (21:00)
[2022-02-03] MEDS: ASPIRIN 81 MG TAB.CHEW CHEWED SCH (21:15)
[2022-02-03] MEDS: carBAMazepine 200 MG TAB.SR.12H PO SCH (21:15)
[2022-02-03] MEDS: DOCUSATE SODIUM 100 MG CAPSULE PO SCH (21:16)
[2022-02-03] MEDS: LAMOTRIGINE 200 MG PO SCH (21:16)
[2022-02-03] MEDS: PHENOBARBITAL 64.8 MG PO SCH (21:16)
[2022-02-03] MEDS: SENNOSIDES 1 TABLET PO SCH (21:17)
[2022-02-03] MEDS: oxyCODONE/APAP 5/325MG TABLET PO PRN (21:18)
[2022-02-03] MEDS: 0.9 % SODIUM CHLORIDE 10 ML SYRINGE IV SCH (21:22)
[2022-02-03] MEDS ORDERED: 0.9 % SODIUM CHLORIDE 10 ML SYRINGE IV SCH (22:00)
[2022-02-03] MEDS: ceFAZolin 1 GM VIAL IV SCH (23:18)
[2022-02-04] MEDS: carBAMazepine 200 MG TAB.SR.12H PO SCH ×3 (03:35→20:48)
[2022-02-04] MEDS: HYDROCORTISONE SOD SUCC 100 MG VIAL IV SCH ×4 (05:45→22:14)
[2022-02-04] MEDS: 0.9 % SODIUM CHLORIDE 1,000 ML IV SCH ×2 (05:45→20:19)
[2022-02-04] MEDS: 0.9 % SODIUM CHLORIDE 10 ML SYRINGE IV SCH ×4 (05:47→22:27)
[2022-02-04] MEDS: LEVOTHYROXINE 175 MCG PO SCH (07:13)
[2022-02-04] MEDS: ceFAZolin 1 GM VIAL IV SCH (07:13)
[2022-02-04] MEDS: LAMOTRIGINE 200 MG PO SCH ×2 (08:58→21:05)
[2022-02-04] MEDS: BROMOCRIPTINE 2.5 MG PO SCH ×3 (08:58→21:03)
[2022-02-04] MEDS: DOCUSATE SODIUM 100 MG CAPSULE PO SCH ×2 (08:59→21:10)
[2022-02-04] MEDS: ASPIRIN 81 MG TAB.CHEW CHEWED SCH ×2 (08:59→21:09)
[2022-02-04] MEDS: ENOXAPARIN 40 MG/0.4 ML SYRINGE SQ SCH (08:59)
[2022-02-04] MEDS: PANTOPRAZOLE 40 MG TABLET PO SCH (08:59)
--- NOTE | 2022-02-04 10:23 | Orthopedic Progress Note ---
SUBJECTIVE Subjective Patient information: Note initiated : 02/04/22 at 10:20 am Service Date, if different from initiated Date: [] Patient: Rio Chambers 66 y/o M admitted on 02/03/22 for Rt hip Pain post fall. Chief Complaint: [minimal pain and no nausea or vomiting] Principal diagnosis: right femoral neck fx toni Constitutional Vitals: Vital Signs Temp Pulse Resp BP Pulse Ox O2 Del Method O2 Flow Rate 98.5 F 71 18 121/72 93 1.5 02/04/22 07:22 02/04/22 07:22 02/04/22 07:22 02/04/22 07:22 02/04/22 08:05 02/04/22 08:05 02/04/22 07:22 Period Temp Pulse Resp BP Sys/Javed Pulse Ox O2 Del Method O2 Flow Rate Last 24 Hr 96.9 F-98.5 F 48-71 10-18 97-130/49-86 89-98 Nasal Cannula- Simple Mask 0-6 Intake and Output 02/03/22 02/04/22 02/04/22 19:59 03:59 11:59 Intake Total 806 600 0286 Output Total 450 300 Balance 350 -210 1540 Weight 251 lb 4.8 oz Intake & Output: Intake & Output 02/03/22 02/04/22 02/04/22 19:59 03:59 11:59 Intake Total 256 412 5096 Output Total 450 300 Balance 350 -210 1540 Weight 251 lb 4.8 oz Intake: IV 150 1000 Sodium Chloride 0.9% 1,000 ml @ 1000 75 mls/hr IV .[id number] [facility] Rx#: [id number] Ancef 2 gm In Dextrose 5% in 50 Water 50 ml @ 100 mls/hr IV PREOP MOOKIE Rx#:[id number] Oral 200 240 600 Lipid 240 Output: Void Amount 450 300 Other: Meal Dinner Breakfast Percent of Meal Consumed 100% 100% Feeding Ability Assist with Tray Set Up Urine Appearance Clear Clear Clear Urine Color Yellow Dark Yellow Yellow Urine Odor Strong General appearance: no acute distress Extremities Exam Extremities exam: Present normal capillary refill and neurovascular intact OBJ DATA Labs CBC & Chem 7: 02/04/22 05:50 02/03/22 14:07 Labs: Abnormal Lab Results 02/04/22 02/03/22 05:50 14:07 RBC 4.25 L Hct 37.8 L Immature Gran % (Auto) 0.6 H Meds: Medications Acetaminophen (Acetaminophen 325 Mg Tablet) 650 mg PO Q6HP PRN; Protocol PRN Reason: Per Pain Protocol/Fever > 101 Albuterol Sulfate (Albuterol Sulfate 2.5 Mg/3 Ml Nebulizer) 2.5 mg NEB Q2HP PRN PRN Reason: Shortness Of Breath Aspirin (Aspirin 81 Mg Tab.Chew) 81 mg CHEWED BID [facility] Last Admin: 02/04/22 08:59 Dose: 81 mg Bisacodyl (Bisacodyl 10 Mg Supp.Rect) 10 mg SD Q2-3DAYS PRN PRN Reason: Constipation Docusate Sodium (Docusate Sodium 100 Mg Capsule) 100 mg PO BID [facility] Last Admin: 02/04/22 08:59 Dose: 100 mg Enoxaparin Sodium (Enoxaparin 40 Mg/0.4 Ml Syringe) 40 mg SQ DAILY [facility] Last Admin: 02/04/22 08:59 Dose: 40 mg Hydrocortisone Sodium Succinate (Hydrocortisone Sod Succ 100 Mg Vial) 50 mg IV Q12 [facility] Last Admin: 02/04/22 08:58 Dose: 50 mg Hydromorphone HCl (Hydromorphone 1 Mg/Ml Syringe) 0.5 - 2 mg IV Q2HP PRN; Protocol PRN Reason: Per Pain Protocol Sodium Chloride (Sodium Chloride 0.9%) 1,000 mls @ 75 mls/hr IV .[id number] [facility] Last Admin: 02/04/22 05:45 Dose: 75 mls/hr Sodium Chloride (Sodium Chloride 0.45%) 1,000 mls @ 100 mls/hr IV .Q10H [facility] Last Admin: 02/03/22 23:40 Dose: Not Given Lorazepam (Lorazepam 2 Mg/Ml Vial) 2 mg IV Q2-4HP PRN PRN Reason: Seizure Activity Magnesium Hydroxide (Magnesium Hydroxide 30 Ml Oral.Susp) 30 ml PO BIDP PRN PRN Reason: Constipation Naloxone HCl (Naloxone Hcl 0.4 Mg/Ml Vial) 0.1 mg IV Q2MIN PRN PRN Reason: Opiate Reversal Nitroglycerin (Nitroglycerin 0.4 Mg Tab.Subl) 0.4 mg SL Q5M PRN PRN Reason: Chest Pain Ondansetron HCl (Ondansetron 4 Mg/2 Ml Vial) 4 mg IV Q4HP PRN; Protocol PRN Reason: Nausea And Vomiting Oxycodone/Acetaminophen (Oxycodone/Apap 5/325mg Tablet) 1 - 2 tab PO Q4HP PRN; Protocol PRN Reason: Per Pain Protocol Last Admin: 02/03/22 21:18 Dose: 1 tab Pantoprazole Sodium (Pantoprazole 40 Mg Tablet) 40 mg PO QAM [facility] Last Admin: 02/04/22 08:59 Dose: 40 mg Bromocriptine 2.5mg 2 dose PO 0900,2200 [facility] Last Admin: 02/04/22 08:58 Dose: 2 dose Carbamazepine 200 Mg (Tab.Sr.12h) 3 dose PO Q12H [facility] Last Admin: 02/04/22 08:59 Dose: 3 dose Lamotrigine 200mg 3 dose PO BID [facility] Last Admin: 02/04/22 08:58 Dose: 3 dose Levothyroxine 175 (Mcg) 1 dose PO 0730 [facility] Last Admin: 02/04/22 07:13 Dose: 1 dose (Phenobarbital 64.8 (Mg Tablet)) 3 dose PO HS [facility] Last Admin: 02/03/22 21:16 Dose: 3 dose Bromocriptine 2.5mg 1 dose PO 1600 [facility] Last Admin: 02/03/22 18:53 Dose: Not Given Polyethylene Glycol (Polyethylene Glycol 3350 17 Gm Packet) 17 gm PO DAILYP PRN PRN Reason: Constipation Prochlorperazine (Prochlorperazine 10 Mg/2 Ml Vial) 5 mg IV Q4HP PRN PRN Reason: Nausea And Vomiting Senna (Sennosides 1 Tablet) 2 tab PO [facility] Last Admin: 02/03/22 21:17 Dose: 2 tab Sodium Biphosphate/Sodium Phosphate (Fleets Adult Enema) 1 dose SD Q3-4DAYS PRN PRN Reason: Constipation Sodium Chloride (0.9 % Sodium Chloride 10 Ml Syringe) 10 ml IV Q8 [facility] Last Admin: 02/04/22 05:47 Dose: Not Given Trazodone HCl (Trazodone Hcl 50 Mg Tablet) 50 mg PO HSP PRN PRN Reason: Insomnia A/P Assessment and plan (1) Fracture of hip, right, closed: Assessment and plan: plan is to dc to his assisted living once able to walk 75 to 100 feet doing well fu in 2 weeks Status: Acute (2) Hypersomnia: Status: Chronic (3) Snoring: Status: Chronic Time Spent With Patient Time: Total time spent is greater than 50% in coordination of care (as documented) at patient's floor/unit and/or counseling patient: Total time spent with greater than 50% in coordination of care (as documented) at patient's floor/unit and/or counseling patient:: 15 - 24 minutes
--- NOTE | 2022-02-04 11:54 | Operative Note ---
DATE OF OPERATION: 02/03/2022 DATE OF SERVICE: 02/03/2022 PREOPERATIVE DIAGNOSIS: Right femoral neck fracture, displaced. POSTOPERATIVE DIAGNOSIS: Right femoral neck fracture, displaced. PROCEDURE: Right femoral neck fracture hemiarthroplasty. IMPLANTS: Size 5 cementless stem with a neutral neck length and a dual mobility ball. SURGEON: Joce Feliciano M.D. CREDIT OR LOANS OFFICER: Otto Gamboa PA-C. The expertise and technical skill of this provider were required throughout the case. The JOSEPH assisted with preoperative coordination, intraoperative retraction, wound closure, and dressing and splint application, as well as postoperative documentation and care coordination. ANESTHESIA: General LMA anesthesia. FINDINGS: Femoral neck fracture, displaced. TOURNIQUET TIME: 40 mL. SPECIMENS REMOVED: None were sent to pathology. CONDITION: Stable. DISPOSITION: PACU. DESCRIPTION OF PROCEDURE: The patient was brought to the operating room, put to sleep with general LMA anesthesia. The right leg was sterilely prepped and draped in a left lateral position in the [place] positioner, stockinette placed over the foot up above the knee and Ioban placed over the skin. A superior approach was performed, making an incision through the capsule. We dislocated the hip with the broken femoral neck. The ball was removed. Bony fragments were removed from the acetabulum. We thoroughly irrigated and then broached up on the femur to a size 5 stem. We calcar reamed to a stable layer and then we placed in neutral neck length and high offset stem with bipolar head. The hip was stable throughout the arc of motion clear up to 90 degrees. At this point, we measured leg length. This was equal to preoperative length. We then placed the final implants, the size 5 cementless stem with a high offset neck angle with a neutral neck length bipolar head. This was reduced. Stable hip. We closed the capsule with #1 Ethibond, closed the fascial layer with #1 Stratafix. We closed the skin with Stratafix and adhesive closure. Sterile bandage was applied. Blood loss about 40 mL. No complications. RBH:[email or web address] Job ID: [id number] Doc ID: [id number] Joce Feliciano MD
--- NOTE | 2022-02-04 11:55 | Internal Med Progress Note ---
SUBJECTIVE Subjective Patient information: Note initiated : 02/04/22 at 11:53 am Service Date, if different from initiated Date: [] Patient: Rio Chambers 66 y/o M admitted on 02/03/22 for Rt hip Pain post fall. Chief Complaint: [] Principal diagnosis: right femoral neck fx toni Interval history: Pt seen examined, no acute complains or concerns POD 1, pain reasonably well controlled Pertinent ROS: Denies headache, dizziness Denies chest pain, palpitations Denies cough or shortness of breath Denies abdominal pain, nausea or vomiting. Constitutional Vitals: Vital Signs Temp Pulse Resp BP Pulse Ox O2 Del Method O2 Flow Rate 98.5 F 67 16 96/53 91 1 02/04/22 07:22 02/04/22 11:29 02/04/22 11:29 02/04/22 11:29 02/04/22 11:29 02/04/22 11:29 02/04/22 11:29 Period Temp Pulse Resp BP Sys/Javed Pulse Ox O2 Del Method O2 Flow Rate Last 24 Hr 96.9 F-98.5 F 48-71 10-18 96-130/49-86 89-98 Nasal Cannula-Simple Mask 0-6 Intake and Output 02/03/22 02/04/22 02/04/22 19:59 03:59 11:59 Intake Total 288 067 9005 Output Total 450 600 Balance 350 -210 1240 Weight 113.988 kg Intake & Output: Intake & Output 02/03/22 02/04/22 02/04/22 19:59 03:59 11:59 Intake Total 519 642 9493 Output Total 450 600 Balance 350 -210 1240 Weight 113.988 kg Intake: IV 150 1000 Sodium Chloride 0.9% 1,000 ml @ 1000 75 mls/hr IV .[id number] MOOKIE Rx#: [id number] Ancef 2 gm In Dextrose 5% in 50 Water 50 ml @ 100 mls/hr IV PREOP MOOKIE Rx#:[id number] Oral 200 240 600 Lipid 240 Output: Void Amount 450 600 Other: Meal Dinner Breakfast Percent of Meal Consumed 100% 100% Feeding Ability Assist with Tray Set Up Urine Appearance Clear Clear Clear Urine Color Yellow Dark Yellow Yellow Urine Odor Strong Exam: Constitutional; Afebrile, cooperative, alert, not in distress. Eyes- No icterus, , No periorbital swelling Ears- Ext ear normal, hearing normal to conversation. Neck- Midline trachea, supple Respiratory system: Air Entry equal on both sides, No crackles or wheezing, no rhonchi. CVS- Rate rhythm regular, S1,S2 heard, no gallop, no rub. 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 OBJ DATA Labs CBC & Chem 7: 02/04/22 05:50 02/03/22 14:07 Labs: Abnormal Lab Results 02/04/22 02/03/22 05:50 14:07 RBC 4.25 L Hct 37.8 L Immature Gran % (Auto) 0.6 H Meds: Medications Acetaminophen (Acetaminophen 325 Mg Tablet) 650 mg PO Q6HP PRN; Protocol PRN Reason: Per Pain Protocol/Fever > 101 Albuterol Sulfate (Albuterol Sulfate 2.5 Mg/3 Ml Nebulizer) 2.5 mg NEB Q2HP PRN PRN Reason: Shortness Of Breath Aspirin (Aspirin 81 Mg Tab.Chew) 81 mg CHEWED BID [facility] Last Admin: 02/04/22 08:59 Dose: 81 mg Bisacodyl (Bisacodyl 10 Mg Supp.Rect) 10 mg [place] Q2-3DAYS PRN PRN Reason: Constipation Docusate Sodium (Docusate Sodium 100 Mg Capsule) 100 mg PO BID [facility] Last Admin: 02/04/22 08:59 Dose: 100 mg Enoxaparin Sodium (Enoxaparin 40 Mg/0.4 Ml Syringe) 40 mg SQ DAILY [facility] Last Admin: 02/04/22 08:59 Dose: 40 mg Hydrocortisone Sodium Succinate (Hydrocortisone Sod Succ 100 Mg Vial) 50 mg IV Q12 [facility] Last Admin: 02/04/22 08:58 Dose: 50 mg Hydromorphone HCl (Hydromorphone 1 Mg/Ml Syringe) 0.5 - 2 mg IV Q2HP PRN; Protocol PRN Reason: Per Pain Protocol Sodium Chloride (Sodium Chloride 0.9%) 1,000 mls @ 75 mls/hr IV .[id number] [facility] Last Admin: 02/04/22 05:45 Dose: 75 mls/hr Sodium Chloride (Sodium Chloride 0.45%) 1,000 mls @ 100 mls/hr IV .Q10H [facility] Last Admin: 02/03/22 23:40 Dose: Not Given Lorazepam (Lorazepam 2 Mg/Ml Vial) 2 mg IV Q2-4HP PRN PRN Reason: Seizure Activity Magnesium Hydroxide (Magnesium Hydroxide 30 Ml Oral.Susp) 30 ml PO BIDP PRN PRN Reason: Constipation Naloxone HCl (Naloxone Hcl 0.4 Mg/Ml Vial) 0.1 mg IV Q2MIN PRN PRN Reason: Opiate Reversal Nitroglycerin (Nitroglycerin 0.4 Mg Tab.Subl) 0.4 mg SL Q5M PRN PRN Reason: Chest Pain Ondansetron HCl (Ondansetron 4 Mg/2 Ml Vial) 4 mg IV Q4HP PRN; Protocol PRN Reason: Nausea And Vomiting Oxycodone/Acetaminophen (Oxycodone/Apap 5/325mg Tablet) 1 - 2 tab PO Q4HP PRN; Protocol PRN Reason: Per Pain Protocol Last Admin: 02/03/22 21:18 Dose: 1 tab Pantoprazole Sodium (Pantoprazole 40 Mg Tablet) 40 mg PO QAM [facility] Last Admin: 02/04/22 08:59 Dose: 40 mg Bromocriptine 2.5mg 2 dose PO 0900,2200 [facility] Last Admin: 02/04/22 08:58 Dose: 2 dose Carbamazepine 200 Mg (Tab.Sr.12h) 3 dose PO Q12H [facility] Last Admin: 02/04/22 08:59 Dose: 3 dose Lamotrigine 200mg 3 dose PO BID [facility] Last Admin: 02/04/22 08:58 Dose: 3 dose Levothyroxine 175 (Mcg) 1 dose PO 0730 [facility] Last Admin: 02/04/22 07:13 Dose: 1 dose (Phenobarbital 64.8 (Mg Tablet)) 3 dose PO HS [facility] Last Admin: 02/03/22 21:16 Dose: 3 dose Bromocriptine 2.5mg 1 dose PO 1600 [facility] Last Admin: 02/03/22 18:53 Dose: Not Given Polyethylene Glycol (Polyethylene Glycol 3350 17 Gm Packet) 17 gm PO DAILYP PRN PRN Reason: Constipation Prochlorperazine (Prochlorperazine 10 Mg/2 Ml Vial) 5 mg IV Q4HP PRN PRN Reason: Nausea And Vomiting Senna (Sennosides 1 Tablet) 2 tab PO [facility] Last Admin: 02/03/22 21:17 Dose: 2 tab Sodium Biphosphate/Sodium Phosphate (Fleets Adult Enema) 1 dose [place] Q3-4DAYS PRN PRN Reason: Constipation Sodium Chloride (0.9 % Sodium Chloride 10 Ml Syringe) 10 ml IV Q8 [facility] Last Admin: 02/04/22 05:47 Dose: Not Given Trazodone HCl (Trazodone Hcl 50 Mg Tablet) 50 mg PO HSP PRN PRN Reason: Insomnia A/P Narrative A/P Narrative: A/P Right Femur neck Fracture -Post op day 1, doing well -anticipat d /c tomorrow Panhypopitutarism Adrenal insufficiency -on iv steroids at thsi time, wean down to home dose of oral steroids in AM -continue levothroxyine Seizure disorder -continue seizure prophylaxis -continue oral anti seizure meds, no seizuer episodes reported. Time Spent With Patient Time: Total time spent is greater than 50% in coordination of care (as documented) at patient's floor/unit and/or counseling patient: QUALITY Stroke Symptom Onset Unknown: No VTE Deep Vein Thrombosis/Pulmonary Embolism Present on Admission: No
[2022-02-04] MEDS: 0.45 % SODIUM CHLORIDE 1,000 ML IV SCH ×2 (13:43→22:27)
[2022-02-04] MEDS: SENNOSIDES 1 TABLET PO SCH (21:09)
[2022-02-04] MEDS: oxyCODONE/APAP 5/325MG TABLET PO PRN (21:10)
[2022-02-04] MEDS: PHENOBARBITAL 64.8 MG PO SCH (21:18)
[2022-02-05] MEDS: 0.9 % SODIUM CHLORIDE 10 ML SYRINGE IV SCH ×3 (05:40→21:49)
[2022-02-05] MEDS: oxyCODONE/APAP 5/325MG TABLET PO PRN ×2 (05:42→14:32)
[2022-02-05] MEDS: LEVOTHYROXINE 175 MCG PO SCH (07:00)
[2022-02-05] MEDS: carBAMazepine 200 MG TAB.SR.12H PO SCH ×2 (09:21→21:50)
[2022-02-05] MEDS: PANTOPRAZOLE 40 MG TABLET PO SCH (09:21)
[2022-02-05] MEDS: ENOXAPARIN 40 MG/0.4 ML SYRINGE SQ SCH (09:21)
[2022-02-05] MEDS: LAMOTRIGINE 200 MG PO SCH ×2 (09:21→21:49)
[2022-02-05] MEDS: DOCUSATE SODIUM 100 MG CAPSULE PO SCH ×2 (09:21→21:51)
[2022-02-05] MEDS: ASPIRIN 81 MG TAB.CHEW CHEWED SCH ×2 (09:21→21:50)
[2022-02-05] MEDS: BROMOCRIPTINE 2.5 MG PO SCH ×3 (09:21→21:50)
[2022-02-05] MEDS: HYDROCORTISONE SOD SUCC 100 MG VIAL IV SCH (09:45)
--- NOTE | 2022-02-05 14:38 | Internal Med Progress Note ---
SUBJECTIVE Subjective Patient information: Note initiated : 02/05/22 at 2:35 pm Service Date, if different from initiated Date: [] Patient: Rio Chambers 66 y/o M admitted on 02/03/22 for Rt hip Pain post fall. Chief Complaint: [] Principal diagnosis: right femoral neck fx toni Interval history: Pt seen examined, no acute complains or concerns POD 2, remains stable, no acute issues THis AM was hypotensive, but remained asymptomatic. Pertinent ROS: Denies headache, dizziness Denies chest pain, palpitations Denies cough or shortness of breath Denies abdominal pain, nausea or vomiting. Constitutional Vitals: Vital Signs Temp Pulse Resp BP Pulse Ox O2 Del Method O2 Flow Rate 98.0 F 73 19 111/67 92 1 02/05/22 12:00 02/05/22 12:00 02/05/22 06:50 02/05/22 12:00 02/05/22 12:00 02/05/22 12:00 02/05/22 06:50 Period Temp Pulse Resp BP Sys/Javed Pulse Ox O2 Del Method O2 Flow Rate Last 24 Hr 98.0 F-99.3 F 72-80 14-19 80-111/44-68 91-95 Nasal Cannula- Room Air 1-1.5 Intake and Output 02/05/22 02/05/22 02/05/22 03:59 11:59 19:59 Intake Total 320 640 Output Total 1200 Balance -880 640 Intake & Output: Intake & Output 02/05/22 02/05/22 02/05/22 03:59 11:59 19:59 Intake Total 320 640 Output Total 1200 Balance -880 640 Intake: Oral 320 640 Output: Void Amount 1200 Other: Meal Breakfast Percent of Meal Consumed 25% Urine Appearance Clear Urine Color Dark Yellow Urine Odor Normal Exam: Constitutional; Afebrile, cooperative, alert, not in distress. Ears- Ext ear normal, hearing normal to conversation. Neck- Midline trachea, supple Respiratory system: Air Entry equal on both sides, No crackles or wheezing, no rhonchi. CVS- Rate rhythm regular, S1,S2 heard, no gallop, no rub. 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 OBJ DATA Labs CBC & Chem 7: 02/04/22 05:50 02/03/22 14:07 Labs: Abnormal Lab Results 02/04/22 02/03/22 05:50 14:07 RBC 4.25 L Hct 37.8 L Immature Gran % (Auto) 0.6 H Meds: Medications Acetaminophen (Acetaminophen 325 Mg Tablet) 650 mg PO Q6HP PRN; Protocol PRN Reason: Per Pain Protocol/Fever > 101 Albuterol Sulfate (Albuterol Sulfate 2.5 Mg/3 Ml Nebulizer) 2.5 mg NEB Q2HP PRN PRN Reason: Shortness Of Breath Aspirin (Aspirin 81 Mg Tab.Chew) 81 mg CHEWED BID [facility] Last Admin: 02/05/22 09:21 Dose: 81 mg Bisacodyl (Bisacodyl 10 Mg Supp.Rect) 10 mg [place] Q2-3DAYS PRN PRN Reason: Constipation Docusate Sodium (Docusate Sodium 100 Mg Capsule) 100 mg PO BID [facility] Last Admin: 02/05/22 09:21 Dose: 100 mg Enoxaparin Sodium (Enoxaparin 40 Mg/0.4 Ml Syringe) 40 mg SQ DAILY [facility] Last Admin: 02/05/22 09:21 Dose: 40 mg Hydrocortisone (Hydrocortisone 10 Mg Tablet) 20 mg PO BID [facility] Hydromorphone HCl (Hydromorphone 1 Mg/Ml Syringe) 0.5 - 2 mg IV Q2HP PRN; Jae col PRN Reason: Per Pain Protocol Lorazepam (Lorazepam 2 Mg/Ml Vial) 2 mg IV Q2-4HP PRN PRN Reason: Seizure Activity Magnesium Hydroxide (Magnesium Hydroxide 30 Ml Oral.Susp) 30 ml PO BIDP PRN PRN Reason: Constipation Naloxone HCl (Naloxone Hcl 0.4 Mg/Ml Vial) 0.1 mg IV Q2MIN PRN PRN Reason: Opiate Reversal Nitroglycerin (Nitroglycerin 0.4 Mg Tab.Subl) 0.4 mg SL Q5M PRN PRN Reason: Chest Pain Ondansetron HCl (Ondansetron 4 Mg/2 Ml Vial) 4 mg IV Q4HP PRN; Protocol PRN Reason: Nausea And Vomiting Oxycodone/Acetaminophen (Oxycodone/Apap 5/325mg Tablet) 1 - 2 tab PO Q4HP PRN; Protocol PRN Reason: Per Pain Protocol Last Admin: 02/05/22 14:32 Dose: 1 tab Pantoprazole Sodium (Pantoprazole 40 Mg Tablet) 40 mg PO QAM [facility] Last Admin: 02/05/22 09:21 Dose: 40 mg Bromocriptine 2.5mg 2 dose PO 0900,2200 [facility] Last Admin: 02/05/22 09:21 Dose: 2 dose Carbamazepine 200 Mg (Tab.Sr.12h) 3 dose PO Q12H [facility] Last Admin: 02/05/22 09:21 Dose: 3 dose Lamotrigine 200mg 3 dose PO BID [facility] Last Admin: 02/05/22 09:21 Dose: 3 dose Levothyroxine 175 (Mcg) 1 dose PO 0730 [facility] Last Admin: 02/05/22 07:00 Dose: 1 dose (Phenobarbital 64.8 (Mg Tablet)) 3 dose PO HS [facility] Last Admin: 02/04/22 21:18 Dose: 3 dose Bromocriptine 2.5mg 1 dose PO 1600 [facility] Last Admin: 02/04/22 17:04 Dose: 1 dose Polyethylene Glycol (Polyethylene Glycol 3350 17 Gm Packet) 17 gm PO DAILYP PRN PRN Reason: Constipation Prochlorperazine (Prochlorperazine 10 Mg/2 Ml Vial) 5 mg IV Q4HP PRN PRN Reason: Nausea And Vomiting Senna (Sennosides 1 Tablet) 2 tab PO HS [facility] Last Admin: 02/04/22 21:09 Dose: 2 tab Sodium Biphosphate/Sodium Phosphate (Fleets Adult Enema) 1 dose [place] Q3-4DAYS PRN PRN Reason: Constipation Sodium Chloride (0.9 % Sodium Chloride 10 Ml Syringe) 10 ml IV Q8 [facility] Last Admin: 02/05/22 14:13 Dose: 10 ml Trazodone HCl (Trazodone Hcl 50 Mg Tablet) 50 mg PO HSP PRN PRN Reason: Insomnia A/P Assessment and plan (1) Fracture of hip, right, closed: Assessment and plan: Traumatic fracture Plan: Post op day 2, likely snf tomorrow Status: Acute Narrative A/P Narrative: A/P Right Femur neck Fracture -Post op day 1, doing well -anticipate d?c tomorrow after 3 [place] stay Panhypopitutarism Adrenal insufficiency -transitioned to oral steroids, -continue levothroxyine Seizure disorder -continue seizure prophylaxis -continue oral anti seizure meds, no seizuer episodes reported. Hypotension -bp stable this afternoon, asymptomatic, due to meds? monitor for now. Time Spent With Patient Time: Total time spent is greater than 50% in coordination of care (as documented) at patient's floor/unit and/or counseling patient: QUALITY Stroke Symptom Onset Unknown: No VTE Deep Vein Thrombosis/Pulmonary Embolism Present on Admission: No
[2022-02-05] MEDS: PHENOBARBITAL 64.8 MG PO SCH (21:49)
[2022-02-05] MEDS: HYDROCORTISONE 10 MG TABLET PO SCH (21:50)
[2022-02-05] MEDS: SENNOSIDES 1 TABLET PO SCH (21:50)
[2022-02-06] MEDS: 0.9 % SODIUM CHLORIDE 10 ML SYRINGE IV SCH (05:03)
[2022-02-06] MEDS: LEVOTHYROXINE 175 MCG PO SCH (07:11)
[2022-02-06] MEDS: HYDROCORTISONE 10 MG TABLET PO SCH (08:44)
[2022-02-06] MEDS: ENOXAPARIN 40 MG/0.4 ML SYRINGE SQ SCH (08:44)
[2022-02-06] MEDS: DOCUSATE SODIUM 100 MG CAPSULE PO SCH (08:45)
[2022-02-06] MEDS: PANTOPRAZOLE 40 MG TABLET PO SCH (08:45)
[2022-02-06] MEDS: ASPIRIN 81 MG TAB.CHEW CHEWED SCH (08:45)
--- NOTE | 2022-02-06 08:50 | Discharge Summary ---
Discharge Provider Provider IMPORTANT FOLLOW-UP INFORMATION FOR PCP: Patient information: Note initiated : 02/06/22 at 8:50 am Service Date, if different from initiated Date: [] Patient: Rio Chambers 66 y/o M admitted on 02/03/22 for Rt hip Pain post fall. Chief Complaint: [] Date of admission: 02/03/22 17:52 Discharge date: 02/06/22 Primary care physician: Erna Lagos Consults: 02/03/22 Consult to Physician [CONS] Stat Comment: Consulting Provider: Theodora Altamirano Reason For Exam: Physician to Consult 02/03/22 13:56 Consult to Physician [CONS] Stat Comment: Consulting Provider: Joce Feliciano Reason For Exam: Physician to Consult COURSE Hospital Course Hospital course: Mr. Chambers is a 66 year old M With history of panhypopituitarism, history of seizure disorder presented to the emergency room for evaluation of right hip pain.The patient reports he had a mechanical fall, lost his balance and fell, denies any dizziness, denies any prodromal symptoms prior to the fall. After the fall the patient developed pain on his right side of the hip, and therefore he presented to the ED for further evaluation, is difficult for the patient to ambulate. On arrival to the emergency room patient was hemodynamically stable, not requiring oxygen supplementation, he did not complain about any head injury. The patient at the time of my evaluation was a bit groggy after administration of morphine. Lab work shows a normal hemogram, chemistries are pending, patient had an x-ray which shows a right femoral neck fracture, Right Femur neck Fracture --doing well, stable for d ischarge, -dvt prophyalxis/ ot/pt/pain meds per ortho Panhypopitutarism Adrenal insufficiency -transitioned to oral steroids, -continue levothroxyine -no changes in home medicatino regiem at dis harge Seizure disorder -continue seizure prophylaxis -continue oral anti seizure meds, no seizuer episodes reported. -no chagnes in home meds Hypotension -bp stable today, At the time of discharge Patient is hemodynamically stable tolerating p.o. well.. Discharge diagnosis: Right femur fracture Time Spent with Patient Time attestation: Total time spent providing and/or coordinating discharge services: Time spent: Less than 30 minutes EXAM Constitutional Vitals: Temp Pulse Resp BP Pulse Ox O2 Del Method O2 Flow Rate 98.4 F 85 20 128/69 93 1 02/06/22 08:00 02/06/22 08:00 02/06/22 08:00 02/06/22 08:00 02/06/22 08:00 02/06/22 08:00 02/05/22 06:50 Exam: Constitutional; Afebrile, cooperative, alert, not in distress. Eyes- No icterus, , No periorbital swelling Ears- Ext ear normal, hearing normal to conversation. Neck- Midline trachea, supple Respiratory system: Air Entry equal on both sides, No crackles or wheezing, no rhonchi. CVS- Rate rhythm regular, S1,S2 heard, no gallop, no rub. 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 Discharge Plan Patient/Caregiver Discharge Instructions Activity: ambulate only with your walker and as per physical therapy Diet: Regular Diet Prescriptions: New docusate sodium 100 mg capsule 100 mg PO BID Qty: 60 0RF hydrocodone-acetaminophen 10-325 mg tablet 1 - 2 tab PO Q4H PRN (Reason: pain) Qty: 75 0RF aspirin [Ecotrin Low Strength] 81 mg tablet,delayed release (DR/EC) 81 mg PO BID Qty: 60 0RF No Action carbamazepine 200 mg tablet extended release 12 hr 600 mg PO Q12H Qty: 180 12RF hydrocortisone 20 mg tablet 20 mg PO BID Qty: 60 12RF lamotrigine 200 mg tablet 600 mg PO BID Qty: 180 12RF phenobarbital 64.8 mg tablet 194.4 mg PO HS Qty: 90 3RF testosterone cypionate 200 mg/mL oil 200 mg IM Q2W pantoprazole 40 mg tablet,delayed release (DR/EC) 40 mg PO QAM (DME) BD SafetyGlide Needle 22 gauge x 1 1/2" needle See Rx Instructions .Route Rx Instructions: As directed (DME) Syringe 3cc/22Gx1" 3 mL 22 gauge x 1" syringe See Rx Instructions .Route Rx Instructions: As directed levothyroxine 175 mcg tablet 1 tab PO HS bromocriptine 2.5 mg tablet 2 tab PO 08,18 bromocriptine 2.5 mg tablet 1 tab PO 14 vitamin B complex [Super B Complex] Tablet 1 tab PO QDAY melatonin 1 mg Tablet 1 mg PO HS Other Ambulatory Orders: Physical Therapy DC - [facility] (Routine) Location: None Selected Ordered By: Otto Gamboa Toilet Riser Discharge Order (ONCE) Location: None Selected Ordered By: Otto Gamboa Walker (ONCE) Location: None Selected Ordered By: Otto Gamboa Follow Up Plan Follow up with: Otto Gamboa PA-C [Physician Manager Of Sustainability] - Erna Lagos MD [Primary Care Provider] - Patient Disposition: Xfer Assisted Living Facility Prognosis: Fair Rehab Potential: Fair I certify that the patient requires SNF services: Yes Overall status at discharge: patient is progressing back to baseline Discharge Orders: Discharge Order (Routine); Ordered 02/06/22 Ordered By: Otto Gamboa QUALITY VTE Deep Vein Thrombosis/Pulmonary Embolism Present on Admission: No
[2022-02-06] MEDS: LAMOTRIGINE 200 MG PO SCH ×2 (08:52→10:23)
[2022-02-06] MEDS: carBAMazepine 200 MG TAB.SR.12H PO SCH ×2 (08:53→10:23)
[2022-02-06] MEDS: BROMOCRIPTINE 2.5 MG PO SCH ×2 (08:53→10:23)
--- NOTE | 2022-02-06 10:01 | EKG ---
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 Measurements Intervals [place] Rate: 55 P: -21 NV: 251 QRS: -69 QRSD: 142 T: 86 QT: 490 QTc: 469 Interpretive Statements Sinus rhythm INCOMPLETE LEFT BUNDLE BRANCH BLOCK Electronically Signed On 02-06-2022 10:01:22 PST by Talon Romero M.D. /store/[email or web address]/[id number]
== END 2022-02-06 14:25 | DRG 522 ==
LOC: ED 12:58 → SUR 15:24 → MEDSUR 17:52
PROVIDERS: ADMIT Internal Medicine; ATTEND Internal Medicine